=== PATIENT | male | born 1985 | race Caucasian/White ===

== ENCOUNTER 2019-02-26 21:54 | Emergency (ER) | payer OTHER, SELFPAY ==
[2019-02-26 21:57] VITALS: BP 155/80; PULSE 78; RESP 18; TEMP 36.9; O2SAT 97
--- NOTE | 2019-02-26 21:59 | ED.GENADUL_ITS ---
Discharge Plan Disposition Patient Disposition: HOME Condition: Stable Discharge Details Chief Complaint: Abd Prob Clinical Impression: Abdominal pain Primary Care Provider: Sylvia,Local ED Provider: Sen Vivar Home Meds and New Rx's Prescriptions: Continued bupropion HCl 450 mg Tablet Extended Release 24 Hr 450 mg PO DAILY RF: 0 Discharge Instructions Instructions: Abdominal Pain (ED) Additional Instructions: If you still have discomfort in a week see your primary care provider return to the emergency department for severe worsening of pain or new symptoms such as fevers or persistent vomit Medical Decision Making 33 yo male who denies chronic medical problems and no prior surgeries comes in with abdominal pain starting 2 hours ago. Denies any n/v, fevers, changes in bowel habits. on exam he is tender in the rlq without distention and no pain elsewhere in the abdomen. Given location of pain will obtain lab work and ct imaging to evavluate for entities such as appendicitis and pancreatitis pt's labs and imaging unremarkable and he no longer has any pain or tenderness. Given lack of pain or tenderness anymore do not feel additional lab or imaging indicated, could have been muscle spasm. Will d/c home and advised f/u with pcp and return precautions given Differential Diagnosis Differential Diagnosis: appendicitis, constipation, diverticulitis Imaging Data Radiologic Study: Attestation: I personally reviewed and interpreted this imaging study as follows: Imaging: CT Scan Radiologist's impression: no acute findings Lab Data Lab results reviewed: Yes I reviewed the patient's lab results. HPI General Mode of arrival: ambulatory . Date/Time Provider Initiated Documentation: 02/26/19 21:56 . Limitations to Documentation: no limitations . Information obtained by: patient . History of Present Illness 33 year old M presents to the emergency department with the chief complaint of abdominal pain, described as moderate, Quality is described as stabbing and aching, and is localized to the abdomen. Patient reports no radiation. Patient started experiencing this hour(s) (2) and it has been constant. No relieving factors improve symptom(s), No exacerbating factors reported . Patient did receive the following treatments prior to arrival, none Related Data Home Medications Medication Instructions Recorded Confirmed bupropion HCl 450 mg PO DAILY 02/26/19 02/26/19 Allergies Allergy/AdvReac Type Severity Reaction Status Date / Time No Known Allergies Allergy Unverified 02/26/19 22:01 General Stated Complaint: Abd Prob JLAEN: 3 Review of Systems All systems reviewed & are unremarkable except as noted in HPI and below Constitutional Constitutional: Denies chills, Denies fever(s) and Denies weakness Cardiovascular Cardiovascular: Denies chest pain and Denies dyspnea Respiratory Respiratory: Denies cough and Denies dyspnea Gastrointestinal Gastrointestinal: Denies nausea and Denies vomiting Musculoskeletal Musculoskeletal: Denies joint swelling Neurologic Neurologic: Denies weakness PFSH Social History Smoking/Tobacco Use Status: Current-Occasional Alcohol Intake: current Alcohol Intake frequency: 0-2 drinks per day Drug use: Never Do you feel safe at home: Yes Do you feel safe in your relationship?: Yes Exam Const General: no acute distress Orientation: alert HENMT Head: normal to inspection Ears: external ears normal General nose exam: external nose normal Mouth: moist mucous membranes Eyes General: appearance normal, both eyes and all related structures Neck Neck: normal visual inspection Resp Effort & Inspection: normal respiratory effort and able to speak in complete sentences Cardio Rate: regular rate Skin General skin exam: no rashes or lesions noted Neuro General: alert and oriented x3 Extrem General: normal to inspection Psych Mental Status: mental status grossly normal
[2019-02-26] MEDS: Ketorolac 15 MG/ML VIAL IVP (22:09)
[2019-02-26] MEDS: Normal Saline 1,000 ML 1000 ML IV (22:10)
[2019-02-26] MEDS: Normal Saline Flush 10 ML SYR IVP (22:10)
[2019-02-26 22:26] LABS: ALT 70 U/L (16-63); AST 26 U/L (15-37); Albumin 4.1 g/dL (3.4-5.0); Alkaline Phosphatase 100 U/L (46-116); Anion Gap 12.7 mmol/L (3-11); BUN 19 mg/dL (7-18); Bilirubin, Total 0.3 mg/dL (0.2-1.0); CO2 24.3 mmol/L (21.0-32.0); CREATININE 1.19 mg/dL (0.70-1.30); Calcium 8.6 mg/dL (8.5-10.1); Chloride 105 mmol/L (98-107); Glucose 120 mg/dL (70-100); Lipase 154 U/L (73-393); Potassium 3.5 mmol/L (3.5-5.1); Sodium 142 mmol/L (136-145); Total Protein 7.2 g/dL (6.4-8.2)
[2019-02-26] MEDS: Omnipaque 350 MG/ML 100 ML BTL IJ (22:29)
[2019-02-26 22:31] LABS: Bilirubin Negative (Negative); Blood Negative (Negative); Clarity Clear (Clear); Glucose Negative (Negative); Ketones Negative (Negative); Leukocyte Esterase Negative (Negative); Nitrite Negative (Negative); Urobilinogen 0.2 EU/dL (Up TO 0.2)
--- NOTE | 2019-02-26 22:31 | DI.CT_ITS ---
EXAM: CT ABDOMEN PELVIS W CLINICAL HISTORY: right lower abdominal pain TECHNIQUE: Imaging Protocol: Axial computed tomography images with coronal and sagittal reformatted images were created and reviewed CONTRAST MATERIAL: Intravenous: Omnipaque 350 Contrast volume:100 mL contrast route:IV - Oral: No COMPARISON: No exams were available for comparison FINDINGS: ABDOMEN: Lung Bases: Normal where visualized. Liver: Normal density. No measurable mass. The portal, superior mesenteric and splenic veins are harper nt. Gallbladder and biliary tract: No radiodense calculus or dilation. Pancreas: Normal density, no abnormal calcifications or inflammatory process. Spleen: Normal. Kidneys: Normal size, contour and axis. No radiodense stones or obstructive uropathy. No masses seen. Adrenal glands: No masses seen. Abdominal Aorta: Abdominal portion non-dilated. PELVIS: Bladder: Symmetric distention, no gross wall thickening. Bowel: No obstruction or bowel wall thickening. The appendix is normal in size without evidence of ad jacent mesenteric fat stranding or adjacent fluid collection. Peritoneal cavity: No ascites, collection or mesenteric inflammatory response. Bones: Within normal limits. Reproductive organs: Within normal limits. Lymph nodes: Unremarkable. Impression: Unremarkable CT scan of the abdomen and pelvis. DATA REPOSITORY: All CT scans at this facility are submitted to the National Radiology Data Registry (NRDR) Dose Index Registry (DIR) with the [employer] (ACR). RADIATION OPTIMIZATION: All CT scans at this facility use at least one of these dose optimization te chniques: automated exposure control; mA and/or kV adjustment per patient size (includes targeted exa ms where dose is matched to clinical indication); or iterative reconstruction.
[2019-02-26 22:35] LABS: Abs Immature Grans 0.01 k/cumm (0.0-0.09); Absolute Basophil Count 0.04 k/cumm (0.0-0.2); Absolute Eosinophil Count 0.28 k/cumm (0.0-0.7); Absolute Monocyte Count 0.74 k/cumm (0.11-0.7); Absolute Neutrophil Count 6.05 k/cumm (1.2-6.7); Basophils % 0.4; Eosinophils % 2.9; HCT 43.1 % (40.0-50.0); HGB 14.9 g/dL (13.5-17.5); Immature Grans % 0.1; Mean Corp. HGB Concentration 34.6 g/dL (32.0-36.0); Mean Corpuscular Hemoglobin 30.5 pg (27.0-33.0); Mean Corpuscular Volume 88.1 fL (80-95); Mean Platelet Volume 10.1 fL (8.0-11.0); Monocytes % 7.7; Neutrophils % 62.9; Platelet Count 261 x1000/uL (130-400); RBC 4.89 m/cumm (4.50-6.00); White Blood Cell Count 9.62 k/cumm (4.4-10.8)
--- NOTE | 2019-02-26 22:47 | DI.VRAD_ITS ---
PROCEDURE INFORMATION: Exam: CT Abdomen And Pelvis With Contrast Exam date and time: 02/26/2019 10:00 PM Clinical history: 33 years old, male; Abdominal pain; Localized; Right lower quadrant (rlq) TECHNIQUE: Imaging protocol: Computed tomography of the abdomen and pelvis with intravenous contrast. Radiation optimization: All CT scans at this facility use at least one of these dose optimization techniques: automated exposure control; mA and/or kV adjustment per patient size (includes targeted exams where dose is matched to clinical indication); or iterative reconstruction. Contrast material: [id number]; Contrast volume: 100 ml; Contrast route: IV RAC 18G; COMPARISON: No relevant prior studies available. FINDINGS: Liver: No suspicious lesions. Gallbladder and bile ducts: No acute or concerning findings. Pancreas: Unremarkable. No ductal dilation. Spleen: No suspicious lesions. Adrenals: No suspicious nodule. Kidneys and ureters: No hydro. No suspicious lesions. Stomach and bowel: No inflammed or dilated loops. Appendix: Normal appendix. Intraperitoneal space: No free air. No significant fluid collection. Vasculature: Unremarkable. No acute findings Lymph nodes: Unremarkable. Bladder: Unremarkable as visualized. Reproductive: Unremarkable as visualized. Bones/joints: Unremarkable. No acute fracture. Soft tissues: Unremarkable. IMPRESSION: No acute findings. Dictated and Authenticated by: Jim Maier MD. Ordering:RAYMOND Chatterjee MD
[2019-02-26 23:13] VITALS: BP 119/80; PULSE 83; RESP 18; O2SAT 97
== END 2019-02-26 23:05 | disposition home or self-care (01) ==
PROVIDERS: Emergency Provider Emergency Medicine
DX: R10.31 Right lower quadrant pain (principal)
CPT/HCPCS: 36415; 80053; 83690; 96361; 96374; 99285; 74177; 81003; 85025; 99284; J1885; J3490

== ENCOUNTER 2020-11-05 20:04 | Emergency (ER) | payer OTHER, SELFPAY ==
[2020-11-05 20:09] VITALS: BP 144/88; PULSE 84; RESP 18; TEMP 36.6; O2SAT 97
--- NOTE | 2020-11-05 20:15 | DI.RAD_ITS ---
Exam(s) XR LUMBAR SPINE COMPLETE EXAM: XR LUMBAR SPINE COMPLETE CLINICAL HISTORY: pain midline l4-l5. TECHNIQUE: 2D digital imaging was performed. COMPARISON: No exams were available for comparison FINDINGS: BONES: No fracture or destructive lesion. Vertebral bodies are unremarkable. No facet hypertrophy amando ntified. DISKS: Intervertebral disc spaces are maintained. ALIGNMENT: Lumbar spinal alignment is within normal limits. SOFT TISSUE: Normal. IMPRESSION: Unremarkable radiographs of the lumbar spine. DATA REPOSITORY: RADIATION DOSE DELIVERED:
[2020-11-05] MEDS: Orphenadrine 60 MG/2 ML VIAL IM (20:40)
--- NOTE | 2020-11-05 20:42 | ED.GENADUL_ITS ---
Discharge Plan Disposition Patient Disposition: HOME Condition: Stable Discharge Details Clinical Impression: Acute lumbar radiculopathy Primary Care Provider: Sylvia,Local ED Provider: Svetlana Lambert Home Meds and New Rx's Prescriptions: New prednisone 10 mg tablet 10 mg PO DAILY Qty: 20 RF: 0 orphenadrine citrate 100 mg tablet extended release 100 mg PO BID Qty: 10 RF: 0 lidocaine [Lidoderm] 5 % adhesive patch,medicated 1 patch topical DAILY Qty: 15 RF: 0 No Action sertraline 50 mg tablet 50 mg PO DAILY RF: 0 bupropion HCl 450 mg Tablet Extended Release 24 Hr 450 mg PO DAILY RF: 0 cyclobenzaprine 10 mg tablet RF: 0 prednisone 20 mg tablet 20 mg PO USEASDIRECTD RF: 0 Discharge Instructions Additional Instructions: Continue prednisone as prescribed, have sent prescription to your pharmacy Take Norflex medication as prescribed as needed for discomfort, do not drive for 12 hours after taking this medication as it may make you slightly drowsy Apply Lidoderm patch, 12 hours on, 12 hours off, call your doctor on Saturday and return should you have groin numbness, changes in bowel or bladder, weakness of your extremities, or with any new or worsening concerning Medical Decision Making Patient is ambulatory with steady gait, no evidence of cauda equina syndrome Ambulatory with steady gait Placed on Norflex, Lidoderm patch, [facility], we discussed outpatient MRI at the discretion of this provider X-ray lumbar spine does not show evidence of acute abnormality per my interpretation and radiology review Recommendation for reevaluation on Saturday We will take Tylenol 1 g every 6 hours, no more than 4 g daily recommending Neurovascularly intact Medical Records Medical records reviewed: Yes I reviewed the patient's medical records. HPI General Mode of arrival: ambulatory . Date/Time Provider Initiated Documentation: 11/05/20 20:14 . Limitations to Documentation: no limitations . Information obtained by: patient . HPI Narrative: This 35-year-old gentleman presents with report of low back pain. Patient states he has a history of similar pain in the past. He states he is never been quite this extended or painful. He denies any new injuries. He states in the middle of the spine and radiates up to his hips and into his groin. He denies any abdominal pain, groin numbness, changes in bowel or bladder. The pain is exacerbated with movement. He denies any radiation into his extremities or numbness to extremities. He denies any dysuria or frequency. He denies any flank pain. He has been taking prednisone since [facility] when [facility] and [facility]. He was also taking Flexeril which actually reportedly helped his discomfort but he is run out of this medication. Denies history of IV drug abuse or fever. Related Data Home Medications Medication Instructions Recorded Confirmed bupropion HCl 450 mg PO DAILY 02/26/19 11/05/20 sertraline 50 mg tablet 50 mg PO DAILY 05/11/20 11/05/20 cyclobenzaprine mg 11/05/20 lidocaine [Lidoderm] 1 patch TOPICAL DAILY #15 ea 11/05/20 orphenadrine citrate 100 mg PO BID #10 tab 11/05/20 prednisone 10 mg PO DAILY #20 tab 11/05/20 prednisone 20 mg PO USEASDIRECTD 11/05/20 11/05/20 Previous Rx's Medication Instructions Recorded lidocaine [Lidoderm] 1 patch TOPICAL DAILY #15 ea 11/05/20 orphenadrine citrate 100 mg PO BID #10 tab 11/05/20 prednisone 10 mg PO DAILY #20 tab 11/05/20 Allergies Allergy/AdvReac Type Severity Reaction Status Date / Time No Known Allergies Allergy Unverified 11/05/20 20:13 General Stated Complaint: Nk/Back Pain JALEN: 3 Review of Systems All systems reviewed & are unremarkable except as noted in HPI and below PFSH Medical History Alcohol abuse Concussion Epistaxis Hematuria Housing or economic circumstance Hx of traumatic brain injury Hyperlipidemia Left carpal tunnel syndrome Leukoplakia of oral mucosa/tongue Low back pain Major depressive disorder Nasal congestion Obstructive sleep apnea Pain, joint, knee, left PTSD (post-traumatic stress disorder) Right shoulder pain Tobacco user Social History Smoking/Tobacco Use Status: Former Tobacco Use Smoking risk assessment performed?: Yes Alcohol Intake: former Drug use: Occasionally Substance use type: marijuana Details: 11/02/20 18 months with no alcohol Household members: spouse Housing: other Details: mobile home Number of Children: 4 Pets and animals: Yes Pets and animals: cat(s) and dog(s) What is your relationship status?: Panel score (0-1 are the most socially isolated patients): 1 What type of physical activity do you participate in: none Seatbelt use: always Do you feel safe at home: Yes Do you feel safe in your relationship?: Yes Exam Const General: cooperative and no acute distress Eyes Sclera: sclerae normal Resp Effort & Inspection: normal respiratory effort Cardio Rate: regular rate Other: Distal pulses intact GI Other: No abdominal bruit or pulsatile mass, no CVA tenderness Back/Spine/Pelvis Back/spine/pelvis image: 1. Tenderness with palpation, no visible sign of trauma Skin General skin exam: no rashes or lesions noted Neuro General: patient alert and patient oriented x3 Cranial Nerves: CN's II-XI intact bilaterally Other: DTRs intact bilateral lower extremities, strength and sensation intact in bilateral lower extremities, distal pulses intact, negative straight leg raise bilaterally Course Vital Signs Vital signs: Vital Signs Temperature 36.6 C 11/05/20 20:09 Pulse 84 11/05/20 20:09 Respiratory Rate 18 11/05/20 20:09 Blood Pressure 144/88 H 11/05/20 20:09 Pulse Oximetry 97 11/05/20 20:09 Temperature 36.6 C 11/05/20 20:09 Temperature Source Temporal Artery Scan 11/05/20 20:09 Pulse 84 11/05/20 20:09 Respiratory Rate 18 11/05/20 20:09 Respiratory Effort 11/05/20 20:16 Blood Pressure 144/88 H 11/05/20 20:09 Blood Pressure Position Sitting 11/05/20 20:09 Pulse Oximetry 97 11/05/20 20:09 Oxygen Delivery Method Room Air 11/05/20 20:09 Oxygen Flow Rate 0 11/05/20 20:09 Pain Level 9 11/05/20 20:09
[2020-11-05] MEDS: Lidocaine 5% Patch 1 PATCH TP (20:43)
--- NOTE | 2020-11-05 21:37 | DI.VRAD_ITS ---
PROCEDURE INFORMATION: Exam: XR Lumbosacral Spine Exam date and time: 11/05/2020 8:30 PM Age: 35 years old Clinical indication: Low back pain; Patient HX: Pain midline l4-l5 TECHNIQUE: Imaging protocol: XR of the lumbosacral spine. Views: 4 or 5 views. COMPARISON: CT ABDOMEN PELVIS W 02/26/2019 10:29 PM FINDINGS: Bones/joints: Normal. No acute fracture. Normal alignment. Soft tissues: Unremarkable. IMPRESSION: No acute findings. Dictated and Authenticated by: Dalton Angeles MD. Ordering:MAVIS Mota MD
== END 2020-11-05 21:30 | disposition home or self-care (01) ==
PROVIDERS: Emergency Provider Physician Assistant
DX: M54.16 Radiculopathy, lumbar region (principal)
CPT/HCPCS: 96372; 99284; J2360; 72110

== ENCOUNTER 2021-05-08 20:33 | Emergency (ER) | payer OTHER, SELFPAY ==
[2021-05-08 20:41] VITALS: BP 115/79; PULSE 120; RESP 18; TEMP 36.6; O2SAT 97
--- NOTE | 2021-05-08 21:33 | W.ED.GENAD ---
Discharge Plan Disposition Patient Disposition: HOME Condition: Stable Discharge Details Clinical Impression: Lumbago without sciatica Primary Care Provider: Unknown,Unknown ED Provider: Francesca Jackson Home Meds and New Rx's Prescriptions: New prednisone 20 mg tablet 40 mg PO DAILY 5 Days Qty: 10 RF: 0 No Action sertraline 50 mg tablet 50 mg PO DAILY RF: 0 bupropion HCl 450 mg Tablet Extended Release 24 Hr 450 mg PO DAILY RF: 0 cyclobenzaprine 10 mg tablet 10 mg PO DAILY RF: 0 lidocaine [Lidoderm] 5 % adhesive patch,medicated 1 patch topical DAILY Qty: 15 RF: 0 Discharge Instructions Instructions: Low Back Strain (ED) Additional Instructions: X-rays show no acute abnormality. Please take the Valium before bedtime tomorrow as needed for muscle spasm. A prescription for prednisone was sent to the pharmacy we have on file for you. Please take this as directed. Please take Tylenol or Ibuprofen with food every 4-6 hours as needed for pain and swelling. You may try lidocaine patches which get [id number] or IcyHot or similar topical rub. Follow up with primary care provider in 3-5 days. Return to ED sooner if any worsening or concerns. Increase oral fluids. Medical Decision Making 35-year-old male presents to the ER with chief complaint of lower lumbar back pain which he reports began yesterday afternoon after getting up from a sitting position on a couch. He said that it spasmed up and has been getting worse since then. He was seen here in our department approximately 6 months ago for similar and had normal x-rays. He reports that he had an [facility] which showed a bulging disc. He was prescribed prednisone in the past which seemed to help his symptoms. He denies any loss of bowel or bladder control here today. He reports pain radiates down to his bilateral buttocks. No radiation to his lower extremities. He denies any saddle anesthesia. He denies any problems urinating or dysuria. He states that his left normal bowel movement was yesterday morning. He denies any recent heavy lifting or falls. He has a past medical history of traumatic brain injury, major depressive disorder, sleep apnea, PTSD and he is a daily smoker. Fomer alcohol use. L-spine XR: FINDINGS: Bones/joints: Alignment is normal. Vertebral body heights are maintained. There is mild multilevel disc height loss, endplate spurring and facet hypertrophy. No acute fracture. Soft tissues: Unremarkable. IMPRESSION: 1. No acute bone abnormality. 2. Mild degenerative disc disease. Patient was given Valium, oxycodone, lidocaine patch and prednisone. Patient given prescription for prednisone instructed to take lidocaine patch and obtain them [id number]. Patient was given 1 Valium to go. Patient has Flexeril at home. Instructed on home care, verbalized understanding. Patient somewhat improved prior to discharge. This text was generated using Interactive Projectation system, please disregard any oddities of phrase or misspellings. HPI General Mode of arrival: ambulatory. Date/Time Provider Initiated Documentation: 05/08/21 20:52. Limitations to Documentation: no limitations. Information obtained by: patient, RN notes reviewed and old records reviewed. HPI Narrative: 35-year-old male presents to the ER with chief complaint of lower lumbar back pain which he reports began yesterday afternoon after getting up from a sitting position on a couch. He said that it spasmed up and has been getting worse since then. He was seen here in our department approximately 6 months ago for similar and had normal x-rays. He reports that he had an [facility] which showed a bulging disc. He was prescribed prednisone in the past which seemed to help his symptoms. He denies any loss of bowel or bladder control here today. He reports pain radiates down to his bilateral buttocks. No radiation to his lower extremities. He denies any saddle anesthesia. He denies any problems urinating or dysuria. He states that his left normal bowel movement was yesterday morning. He denies any recent heavy lifting or falls. He has a past medical history of traumatic brain injury, major depressive disorder, sleep apnea, PTSD and he is a daily smoker. Fomer alcohol use. Related Data Home Medications Medication Instructions Recorded Confirmed bupropion HCl 450 mg PO DAILY 02/26/19 05/08/21 sertraline 50 mg tablet 50 mg PO DAILY 05/11/20 05/08/21 cyclobenzaprine 10 mg PO DAILY 11/05/20 05/08/21 lidocaine [Lidoderm] 1 patch TOPICAL DAILY #15 ea 11/05/20 05/08/21 prednisone 40 mg PO DAILY 5 Days #10 tab 05/08/21 Previous Rx's Medication Instructions Recorded lidocaine [Lidoderm] 1 patch TOPICAL DAILY #15 ea 11/05/20 prednisone 40 mg PO DAILY 5 Days #10 tab 05/08/21 Allergies Allergy/AdvReac Type Severity Reaction Status Date / Time No Known Allergies Allergy Unverified 05/08/21 22:15 General Stated Complaint: Nk/Back Pain JALEN: 3 Review of Systems All systems reviewed & are unremarkable except as noted in HPI and below ENT Ears, Nose, Mouth, and Throat: Denies neck pain Musculoskeletal Musculoskeletal: Reports as per HPI, Reports back pain, Denies neck pain, Denies numbness, Denies radiating pain into limb and Denies tingling Neurologic Neurologic: Denies numbness and Denies tingling [facility] All Active Problems (Updated 05/08/21 @ 23:00 by Francesca Jackson) Acute lumbar radiculopathy (Acute) Lumbago without sciatica (Acute) Left carpal tunnel syndrome (Acute) Medical History Alcohol abuse Concussion Epistaxis Hematuria Housing or economic circumstance Hx of traumatic brain injury Hyperlipidemia Leukoplakia of oral mucosa/tongue Low back pain Major depressive disorder Nasal congestion Obstructive sleep apnea Pain, joint, knee, left PTSD (post-traumatic stress disorder) Right shoulder pain Tobacco user Social History Smoking/Tobacco Use Status: Current every day Tobacco Type: cigarettes Smoking risk assessment performed?: Yes Alcohol Intake: former Drug use: Occasionally Substance use type: marijuana Details: 2 years sober from alcohol. Household members: spouse Housing: other Details: mobile home Number of Children: 4 Pets and animals: Yes Pets and animals: cat(s) and dog(s) What is your relationship status?: Panel score (0-1 are the most socially isolated patients): 1 What type of physical activity do you participate in: none Seatbelt use: always Do you feel safe at home: Yes Do you feel safe in your relationship?: Yes Exam Narrative Exam Narrative: Constitutional: Alert and oriented x3. Appears stated age. Normal body habitus. Head: Normocephalic, no trauma. Eyes: Pupils PERRL, Red reflex noted, EOM's intact. Eyelids symmetrical without lesions, discharge, or swelling. ENT: Bilateral TM's WNL, External ear normal to inspection, no mastoid TTP, swelling, or erythema, Nasal turbinates WNL, no nasal discharge. Normal dentition, Posterior pharynx WNL, no exudate. Chest: RRR, Normal S1, S2, distal pulses intact. Resp: Lungs clear to auscultation bilaterally, no wheezes, rales, or rhonchi. Abdomen: Soft, non-distended, Normoactive bowel sounds all 4 quads. Musculoskeletal: Normal gait, 5/5 strength to all four extremities. Tenderness with palpation to midline L spine, paraspinous muscle spasm noted. Patient has distal sensation intact bilaterally to lower extremities. Skin: No suspicious rashes or lesions. Capillary refill less than 2 sec. Neurologic: Cranial nerves II-XII intact. Alert and oriented x 3. Motor: No deficits noted. Sensory: Intact bilaterally all 4 extremities. Reflexes: DTR's intact bilaterally.. Hematologic/Lymphatic: No ecchymosis, no lymphadenopathy. Course Vital Signs Vital signs: Vital Signs Temperature 36.6 C 05/08/21 20:41 Pulse 120 H 05/08/21 20:41 Respiratory Rate 18 05/08/21 20:41 Blood Pressure 115/79 05/08/21 20:41 Pulse Oximetry 97 05/08/21 20:41 Temperature 36.6 C 05/08/21 20:41 Temperature Source Temporal Artery Scan 05/08/21 20:41 Pulse 120 H 05/08/21 20:41 Respiratory Rate 18 05/08/21 20:41 Respiratory Effort Non-Labored 05/08/21 20:45 Blood Pressure 115/79 05/08/21 20:41 Blood Pressure Position Sitting 05/08/21 20:41 Pulse Oximetry 97 05/08/21 20:41 Oxygen Delivery Method Room Air 05/08/21 20:41 Oxygen Flow Rate 0 05/08/21 20:41 Pain Level 9 05/08/21 20:45
[2021-05-08] MEDS: diazePAM 5 MG TAB PO ×2 (21:43→23:08)
[2021-05-08] MEDS: oxyCODONE 5 MG TAB PO (21:44)
[2021-05-08] MEDS: predniSONE 20 MG TAB 60 MG PO (21:44)
[2021-05-08] MEDS: Lidocaine 5% Patch 1 PATCH TP (21:51)
--- NOTE | 2021-05-08 22:15 | DI.RAD_ITS ---
Exam(s) XR LUMBAR SPINE COMPLETE EXAM: XR LUMBAR SPINE COMPLETE CLINICAL HISTORY: Lower back pain. TECHNIQUE: 2D digital imaging was performed of the lumbar spine. Five images were obtained. AP, la teral, right oblique, left oblique and L5-S1 spot views were obtained. COMPARISON: CR,XR XR LUMBAR SPINE COMPLETE from 11/05/2020 FINDINGS: BONES: No fracture or destructive lesion. Vertebral bodies are unremarkable. There is mild endplate s purring. DISKS: Intervertebral disc spaces are maintained. ALIGNMENT: Lumbar spinal alignment is within normal limits. No spondylolysis or spondylolisthesis. SOFT TISSUE: Normal. IMPRESSION: 1. No acute fracture or subluxation. 2. Mild degenerative changes in the lumbar spine. DATA REPOSITORY: RADIATION DOSE DELIVERED:
--- NOTE | 2021-05-08 22:53 | DI.VRAD_ITS ---
PROCEDURE INFORMATION: Exam: XR Lumbosacral Spine Exam date and time: 05/08/2021 9:33 PM Age: 35 years old Clinical indication: Low back pain TECHNIQUE: Imaging protocol: XR of the lumbosacral spine. Views: 4 or 5 views. Total images: 5 COMPARISON: CR XR LUMBAR SPINE COMPLETE 11/05/2020 8:51 PM FINDINGS: Bones/joints: Alignment is normal. Vertebral body heights are maintained. There is mild multilevel disc height loss, endplate spurring and facet hypertrophy. No acute fracture. Soft tissues: Unremarkable. IMPRESSION: 1. No acute bone abnormality. 2. Mild degenerative disc disease. Dictated and Authenticated by: Manuela Isabel MD. Ordering:ABA Ma MD
[2021-05-08 23:08] VITALS: BP 122/78; PULSE 72; RESP 18; O2SAT 98
== END 2021-05-08 23:09 | disposition home or self-care (01) ==
PROVIDERS: Emergency Provider Registered Nurse Emergency
DX: M54.50 Low back pain, unspecified (principal)
CPT/HCPCS: 99283; 72110; J7512

== ENCOUNTER 2021-11-01 13:41 | Emergency (ER) | payer OTHER, SELFPAY ==
[2021-11-01 13:45] VITALS: BP 125/88; PULSE 85; RESP 16; TEMP 36.7; O2SAT 97
--- NOTE | 2021-11-01 13:45 | DI.RAD_ITS ---
Exam(s) XR THUMB RT EXAM: XR THUMB RT CLINICAL HISTORY: s/p injury ?fx. TECHNIQUE: 2D digital imaging was performed. Three views. COMPARISON: No exams were available for comparison FINDINGS: BONES: No acute fracture is present. No bony destructive lesion is seen. JOINTS: No dislocation present. SOFT TISSUE: Normal. IMPRESSION: No evidence of acute fracture, dislocation, or subluxation. DATA REPOSITORY: RADIATION DOSE DELIVERED:
--- NOTE | 2021-11-01 14:16 | PDOC.ERCMPRO ---
- If Service Date Differs Date of service: 11/01/21 Time of Service: 14:17 Care Management Progress Note Pt reports he is 2 years sober from alcohol and is trying to quit smoking. Pt has successfully cut back from one pack to a half pack per day. Pt was given smoking cessation resources including hypnotherapy referral and encouraged in his efforts.
--- NOTE | 2021-11-01 16:04 | ED.GENADUL_ITS ---
Discharge Plan Disposition Patient Disposition: HOME Condition: Stable Discharge Details Clinical Impression: Contusion of right thumb Primary Care Provider: Unknown,Unknown ED Provider: Svetlana Lambert Home Meds and New Rx's Prescriptions: Continued sertraline 50 mg tablet 100 mg PO DAILY bupropion HCl 450 mg Tablet Extended Release 24 Hr 450 mg PO DAILY cyclobenzaprine 10 mg tablet 10 mg PO DAILY Label Comments: TAKE 1 TABLET BY MOUTH AT BEDTIME NEEDED FOR PAIN lidocaine [Lidoderm] 5 % adhesive patch,medicated 1 patch topical DAILY Qty: 15 0RF Rx Instructions: leave on most painful area for up to 12 hrs Discharge Instructions Instructions: Contusion in Adults (ED) Additional Instructions: Take ibuprofen and Tylenol as needed for pain You do not have an obvious fracture on your x-ray Should you have persistent pain, recommend repeat x-ray in 1 week Discharge Data Discharge Date/Time-TO BE ENTERED AT DEPARTURE: 11/01/21 15:04 Medical Decision Making X-ray did not show evidence of fracture, placed in a splint per radiology interpretation my review Repeat x-ray in 1 week with persistent pain recommended Return precautions discussed and patient expressed understanding HPI General Date/Time Provider Initiated Documentation: 11/01/21 14:37 . HPI Narrative: This 36-year-old male presents with report of right thumb injury. Slammed over thumb in a door. This morning pain was worse. Denies any additional injuries or complaints. Related Data Home Medications Medication Instructions Recorded Confirmed bupropion HCl 450 mg 24 hr tablet, 450 mg PO DAILY 02/26/19 11/01/21 extended release sertraline 50 mg tablet 100 mg PO DAILY 05/11/20 11/01/21 cyclobenzaprine 10 mg tablet 10 mg PO DAILY 11/05/20 11/01/21 lidocaine 5 % topical patch 1 patch topical DAILY #15 ea 11/05/20 11/01/21 (Lidoderm) Previous Rx's Medication Instructions Recorded lidocaine 5 % topical patch 1 patch topical DAILY #15 ea 11/05/20 (Lidoderm) Allergies Allergy/AdvReac Type Severity Reaction Status Date / Time No Known Allergies Allergy Unverified 11/01/21 13:47 General Stated Complaint: Orthopedic JALEN: 4 Review of Systems Narrative: Review of systems obtained x3 and negative aside from indication in HPI PFSH All Active Problems (Updated 11/01/21 @ 14:39 by JANIS Geronimo) Acute lumbar radiculopathy (Acute) Contusion of right thumb (Acute) Left carpal tunnel syndrome (Acute) Medical History Alcohol abuse Concussion Epistaxis Hematuria Housing or economic circumstance Hx of traumatic brain injury Hyperlipidemia Leukoplakia of oral mucosa/tongue Low back pain Major depressive disorder Nasal congestion Obstructive sleep apnea Pain, joint, knee, left PTSD (post-traumatic stress disorder) Right shoulder pain Tobacco user Social History Smoking/Tobacco Use Status: Current every day Tobacco Type: cigarettes Smoking risk assessment performed?: Yes Alcohol Intake: former Drug use: Occasionally Substance use type: marijuana Details: 2 years sober from alcohol. Household members: spouse Housing: other Details: mobile home Number of Children: 4 Pets and animals: Yes Pets and animals: cat(s) and dog(s) What is your relationship status?: Panel score (0-1 are the most socially isolated patients): 1 What type of physical activity do you participate in: none Seatbelt use: always Do you feel safe at home: Yes Do you feel safe in your relationship?: Yes Exam Const General: cooperative, comfortable and no acute distress Extrem Hand/finger images: 1. Tenderness, Neurovascularly intact Course Vital Signs Vital signs: Vital Signs Temperature 36.7 C 11/01/21 13:45 Pulse 85 11/01/21 13:45 Respiratory Rate 16 11/01/21 13:45 Blood Pressure 125/88 11/01/21 13:45 Pulse Oximetry 97 11/01/21 13:45 Temperature 36.7 C 11/01/21 13:45 Temperature Source Temporal Artery Scan 11/01/21 13:45 Pulse 85 11/01/21 13:45 Respiratory Rate 16 11/01/21 13:45 Respiratory Effort 11/01/21 13:47 Blood Pressure 125/88 11/01/21 13:45 Blood Pressure Position Sitting 11/01/21 13:45 Pulse Oximetry 97 11/01/21 13:45 Oxygen Delivery Method Room Air 11/01/21 13:45 Oxygen Flow Rate 0 11/01/21 13:45 Pain Level 5 11/01/21 15:04
== END 2021-11-01 15:04 | disposition home or self-care (01) ==
PROVIDERS: Emergency Provider Physician Assistant
DX: S60.011A Contusion of right thumb without damage to nail, initial encounter (principal); F17.210 Nicotine dependence, cigarettes, uncomplicated; W23.0XXA Caught, crushed, jammed, or pinched between moving objects, initial encounter; Z71.6 Tobacco abuse counseling
CPT/HCPCS: 99283; 73140; 99282

== ENCOUNTER 2021-12-06 12:15 | Emergency (ER) | payer OTHER, SELFPAY ==
[2021-12-06 12:49] VITALS: BP 140/75; PULSE 70; RESP 14; TEMP 36.8; O2SAT 98
[2021-12-06 14:13] VITALS: BP 112/75; PULSE 75; O2SAT 98
--- NOTE | 2021-12-06 14:30 | DI.RAD_ITS ---
Exam(s) XR THORACIC SPINE COMPLETE EXAM: XR THORACIC SPINE COMPLETE CLINICAL HISTORY: spinous process T10-T11 pain after twisting. TECHNIQUE: 2D digital imaging was performed. COMPARISON: No exams were available for comparison FINDINGS: 3 views There is slight indentation of superior endplate of T10, seen on the lateral view, possibly significa nt given that this is apparently area of maximum tenderness. No other superior endplate compressions . No obvious superior endplate Schmorl's node invagination is although there are few inferior endpla te Schmorl's node invagination is below this level. IMPRESSION: Subtle mild indentation of the superior endplate of T10, possibly significant. DATA REPOSITORY: RADIATION DOSE DELIVERED:
--- NOTE | 2021-12-06 15:07 | ED.GENADUL_ITS ---
Discharge Plan Disposition Patient Disposition: HOME Condition: Good Discharge Details Clinical Impression: Back pain Primary Care Provider: Unknown,Unknown ED Provider: Myron Lane Home Meds and New Rx's Prescriptions: New lidocaine [Lidoderm] 5 % adhesive patch,medicated 1 patch Topical Q24H Qty: 15 0RF Discontinued lidocaine [Lidoderm] 5 % adhesive patch,medicated 1 patch topical DAILY Qty: 15 0RF Rx Instructions: leave on most painful area for up to 12 hrs No Action sertraline 50 mg tablet 100 mg PO DAILY bupropion HCl 450 mg Tablet Extended Release 24 Hr 450 mg PO DAILY cyclobenzaprine 10 mg tablet 10 mg PO DAILY Label Comments: TAKE 1 TABLET BY MOUTH AT BEDTIME NEEDED FOR PAIN Discharge Instructions Instructions: Back Pain (ED) Additional Instructions: At this time your x-ray shows no evidence of significant fracture, disc change, or vertebral body change. However there is a very small compression at the end of your vertebral body which may have been a tiny fracture. This will take a few weeks to heal. It is likely that there may also have been a ligamentous injury that occurred when you were initially twisting. Please use the Tylenol, Motrin, and Lidoderm patch as prescribed. If the symptoms do not improve after a week of therapy and you may need further imaging, potentially an MRI. If you notice any new symptoms like numbness tingling or weakness in your lower extremities, change in sensation when wiping, bowel or bladder loss of control, please return immediately for reassessment. If you notice any worsening of your symptoms, or any new symptoms such as vomiting, diarrhea, fever, chills, shortness of breath, chest pain, numbness, weakness, or fainting , please return immediately to the emergency department for reevaluation. Please follow up with your primary care provider as soon as possible for reassessment and reevaluation. As always, it was a pleasure participating in your medical care today. Discharge Data Discharge Date/Time-TO BE ENTERED AT DEPARTURE: 12/06/21 15:46 Medical Decision Making 36-year-old male with no significant past medical history presents today for back pain. The patient states that 3 days ago he was twisting out of his truck, after which she developed what he felt was a pinching sensation in his back. Pain has persisted for the last 2 days. Sometimes it seems to wrap around anteriorly with certain movements. Worse with activity, improved by Tylenol and Motrin. He denies any distal numbness tingling or weakness. Patient denies any saddle anesthesia, numbness or tingling in the groin, change in sensation when wiping. Patient denies any change in sensation during sexual intercourse, difficulty achieving or maintaining an erection or ejaculation, bowel or bladder incontinence, leakage, or retention. Patient denies any weakness in the lower extremities, atypical falls or imbalance. He denies any chest pain or shortness of breath. No other complaints at this time. No other modifying factors. Physical exam demonstrates point tenderness over T10. No other significant abnormalities, no concerning red flags suggestive of cauda equina syndrome or anything else. X-ray was ordered and does demonstrate a subtle mild indentation of the superior endplate of T10, which does appear to correlate clinically with the patient's symptomatology. Suspect that this may have occurred during that twisting motion. Otherwise no concerning abnormalities noted on exam. Will recommend continued NSAIDs, Lidoderm patch. Of note the patient states he feels much better after having the Lidoderm patch administered. Patient stable for discharge. Recommend close follow-up with PCP for further discussion if pain persist. I have extensively reviewed the treatment plan and discharge instructions with the patient. I have addressed all patient concerns at this time. The patient was made aware of what symptoms to monitor for that would warrant a return to the emergency department. Discussed the plan with the patient, they demonstrate verbal understanding and agreement with our assessment and plan at this time. The documentation in this chart was dictated using Gathered[employer] dictation software. Please excuse any dictation errors. FINDINGS: 3 views There is slight indentation of superior endplate of T10, seen on the lateral view, possibly significant given that this is apparently area of maximum tenderness. No other superior endplate compressions. No obvious superior endplate Schmorl's node invagination is although there are few inferior endplate Schmorl's node invagination is below this level. IMPRESSION: Subtle mild indentation of the superior endplate of T10, possibly significant. HPI General Date/Time Provider Initiated Documentation: 12/06/21 14:23 . HPI Narrative: 36-year-old male with no significant past medical history presents today for back pain. The patient states that 3 days ago he was twisting out of his truck, after which she developed what he felt was a pinching sensation in his back. Pain has persisted for the last 2 days. Sometimes it seems to wrap around anteriorly with certain movements. Worse with activity, improved by Tylenol and Motrin. He denies any distal numbness tingling or weakness. Patient denies any saddle anesthesia, numbness or tingling in the groin, change in sensation when wiping. Patient denies any change in sensation during sexual intercourse, difficulty achieving or maintaining an erection or ejaculation, bowel or bladder incontinence, leakage, or retention. Patient denies any weakness in the lower extremities, atypical falls or imbalance. He denies any chest pain or shortness of breath. No other complaints at this time. No other modifying factors. Related Data Home Medications Medication Instructions Recorded Confirmed bupropion HCl 450 mg 24 hr tablet, 450 mg PO DAILY 02/26/19 11/01/21 extended release sertraline 50 mg tablet 100 mg PO DAILY 05/11/20 11/01/21 cyclobenzaprine 10 mg tablet 10 mg PO DAILY 11/05/20 11/01/21 lidocaine 5 % topical patch 1 patch topical Q24H #15 ea 12/06/21 (Lidoderm) Previous Rx's Medication Instructions Recorded lidocaine 5 % topical patch 1 patch topical Q24H #15 ea 12/06/21 (Lidoderm) Allergies Allergy/AdvReac Type Severity Reaction Status Date / Time No Known Allergies Allergy Unverified 11/01/21 13:47 General Stated Complaint: Nk/Back Pain JALEN: 4 Review of Systems All systems reviewed & are unremarkable except as noted in HPI and below PFSH All Active Problems Acute lumbar radiculopathy (Acute) Back pain (Acute) Left carpal tunnel syndrome (Acute) Medical History Alcohol abuse Concussion Epistaxis Hematuria Housing or economic circumstance Hx of traumatic brain injury Hyperlipidemia Leukoplakia of oral mucosa/tongue Low back pain Major depressive disorder Nasal congestion Obstructive sleep apnea Pain, joint, knee, left PTSD (post-traumatic stress disorder) Right shoulder pain Tobacco user Social History Smoking/Tobacco Use Status: Current every day Tobacco Type: cigarettes Smoking risk assessment performed?: Yes Alcohol Intake: former Drug use: Occasionally Substance use type: marijuana Details: 2 years sober from alcohol. Household members: spouse Housing: other Details: mobile home Number of Children: 4 Pets and animals: Yes Pets and animals: cat(s) and dog(s) What is your relationship status?: Panel score (0-1 are the most socially isolated patients): 1 What type of physical activity do you participate in: none Seatbelt use: always Do you feel safe at home: Yes Do you feel safe in your relationship?: Yes Exam Narrative Exam Narrative: 1.Const: Well-nourished, Well-developed, appearing stated age 2.Eyes: PERRL, no conjunctival injection, and symmetrical lids. 3.ENT: Atraumatic external nose and ears. Moist MM. Neck: Symmetric, trachea midline, No thyromegaly. 4.CVS: +S1/S2, No murmurs or gallops. Peripheral pulses 2+ and equal in all extremities. Brisk capillary refill in all extremities. 5.RESP: Unlabored respiratory effort. Clear to auscultation bilaterally. No wheezes rales or rhonchi 6.GI: Soft, Nontender/Nondistended, No hepatosplenomegaly. No guarding or rebound. 7.MSK: Normocephalic/Atraumatic, Extremities w/o deformity or ttp No cyanosis or clubbing, Normal movement of all extremities No midline tenderness to palpation over the CLS spine. Patient does demonstrate point tenderness over T10. Normal ROM in flexion, extension, side bend, and rotation. Patient has +5 out of 5 strength in the lower extremities in dorsiflexion and plantarflexion, knee flexion and extension, hip flexion and extension. Normal strength for dorsiflexion and plantar flexion of the great toe bilaterally. There is +2 over 2 dorsalis pedis pulses bilaterally. There is normal sensation to the skin with light touch at the foot, knee, and hip. Normal saddle sensation. Good sensation over the deep sural nerve area bilaterally. Rectal exam deferred. Reflexes are +2 over 4 in the patellar reflex bilaterally. +5 out of 5 strength in the medial, ulnar, radial nerve distribution bilaterally in the hands as well as intact light touch sensation to these dermatomes on the hands 8.Skin: Warm, Dry. No rashes or lesions. 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 Sensation grossly intact, no focal neurologic deficits. 10.Psych: (AAO) x3. Appropriate mood and affect Course Vital Signs Vital signs: Vital Signs Temperature 36.8 C 12/06/21 12:49 Pulse 70 12/06/21 12:49 Respiratory Rate 14 12/06/21 12:49 Blood Pressure 140/75 12/06/21 12:49 Pulse Oximetry 98 12/06/21 12:49 Temperature 36.8 C 12/06/21 12:49 Temperature Source Temporal Artery Scan 12/06/21 12:49 Pulse 75 12/06/21 14:13 Respiratory Rate 14 12/06/21 12:49 Blood Pressure 112/75 12/06/21 14:13 Blood Pressure Position Sitting 12/06/21 12:49 Pulse Oximetry 98 12/06/21 14:13 Oxygen Delivery Method Room Air 12/06/21 14:13 Oxygen Flow Rate 0 12/06/21 14:13 Pain Level 6 12/06/21 12:49
[2021-12-06] MEDS: Lidocaine 5% Patch 1 PATCH TP (15:10)
== END 2021-12-06 15:46 | disposition home or self-care (01) ==
LOC: ER 15:21
PROVIDERS: Emergency Provider Student in an Organized Health Care Education/Training Program
DX: M54.9 Dorsalgia, unspecified (principal); F17.210 Nicotine dependence, cigarettes, uncomplicated
CPT/HCPCS: 99283; 72072; 99284

== ENCOUNTER 2022-04-26 12:34 | Outpatient (CLI) | payer MEDICAID, SELFPAY ==
--- NOTE | 2022-04-26 12:45 | RT.EKG_ITS ---
APPROVED REPORT Exam: Resting ECG Reason for Exam: ENOUNTER FOR SCREENING, UNSPECIFIED Patient Location: O HR:90 bpm ECG Measurements Heart Rate 90 AXIS CO 167 P 58 QRSd 102 QRS 71 QT 337 T 30 QTc 413 Conclusion Sinus rhythm...normal P axis, V-rate 50- 99 ST elev, probable normal early repol pattern...ST elevation, age<55 Normal Electrocardiogram
== END 2022-04-26 12:35 | disposition home or self-care (01) ==
LOC: CARDOPNVT 12:34
PROVIDERS: Visit Provider Nurse Practitioner Family
DX: Z13.6 Encounter for screening for cardiovascular disorders (principal)
CPT/HCPCS: 93005; 93010

== ENCOUNTER 2022-10-11 09:53 | Emergency (ER) | payer OTHER, SELFPAY ==
[2022-10-11 10:06] VITALS: BP 112/79; PULSE 83; RESP 18; TEMP 36.7; O2SAT 97
--- NOTE | 2022-10-11 11:02 | DI.RAD_ITS ---
Exam(s) XR FINGER LT MIDDLE EXAM: XR FINGER LT MIDDLE CLINICAL HISTORY: 3rd digit pain, mid phalanx. TECHNIQUE: 2D digital imaging was performed. Three views. COMPARISON: None. FINDINGS: BONES: No acute fracture is present. No bony destructive lesion is seen. JOINTS: No dislocation present. SOFT TISSUE: Normal. IMPRESSION: No evidence of acute fracture, dislocation, or subluxation. DATA REPOSITORY: RADIATION DOSE DELIVERED:
--- NOTE | 2022-10-11 12:00 | ED.GENADUL_ITS ---
Discharge Plan Disposition Patient Disposition: Home Condition: Stable Discharge Details Clinical Impression: Contusion of finger Primary Care Provider: Jude Russell ED Provider: Svetlana Lamebrt Home Meds and New Rx's Prescriptions: Continued sertraline 50 mg tablet 50 mg PO DAILY bupropion HCl 450 mg Tablet Extended Release 24 Hr 450 mg PO DAILY lidocaine [Lidoderm] 5 % adhesive patch,medicated 1 patch Topical Q24H Qty: 15 0RF cyclobenzaprine 10 mg tablet 10 mg PO DAILY Patient Comments: TAKE 1 TABLET BY MOUTH AT BEDTIME NEEDED FOR PAIN Discharge Instructions Instructions: Contusion in Adults (ED) Additional Instructions: Take ibuprofen and Tylenol as needed for pain Use as tolerated Should your symptoms persist greater than a week you should have this exam and Referrals: Jude Russell MD [Primary Care Provider] - Discharge Data Discharge Date/Time-TO BE ENTERED AT DEPARTURE: 10/11/22 13:30 Medical Decision Making X-ray of left middle finger does not show evidence of acute abnormality per radiology interpretation my review Middle finger shows mild swelling, no ecchymosis, neurovascularly intact Return precautions reviewed and patient expressed understanding Repeat films recommended with persistent pain HPI General Date/Time Provider Initiated Documentation: 10/11/22 10:46 . HPI Narrative: 37-year-old male presents with injury to left middle finger after he cut his finger in the door. He denies any additional injuries. Otherwise reportedly healthy Related Data Home Medications Medication Instructions Recorded Confirmed bupropion HCl 450 mg 24 hr tablet, 450 mg PO DAILY 02/26/19 10/11/22 extended release sertraline 50 mg tablet 50 mg PO DAILY 05/11/20 10/11/22 cyclobenzaprine 10 mg tablet 10 mg PO DAILY 11/05/20 10/11/22 lidocaine 5 % topical patch 1 patch topical Q24H #15 ea 12/06/21 (Lidoderm) Previous Rx's Medication Instructions Recorded lidocaine 5 % topical patch 1 patch topical Q24H #15 ea 12/06/21 (Lidoderm) Allergies Allergy/AdvReac Type Severity Reaction Status Date / Time No Known Allergies Allergy Unverified 10/11/22 10:08 General Stated Complaint: Orthopedic JALEN: 4 PFSH All Active Problems (Updated 10/11/22 @ 13:21 by JANIS Geronimo) Contusion of finger (Acute) Screening due (Acute) Acute lumbar radiculopathy (Acute) Left carpal tunnel syndrome (Acute) Medical History Alcohol abuse Concussion Epistaxis Hematuria Housing or economic circumstance Hx of traumatic brain injury Hyperlipidemia Leukoplakia of oral mucosa/tongue Low back pain Major depressive disorder Nasal congestion Obstructive sleep apnea Pain, joint, knee, left PTSD (post-traumatic stress disorder) Right shoulder pain Tobacco user Social History Smoking/Tobacco Use Status: Former Tobacco Use Smoking risk assessment performed?: Yes Alcohol Intake: former Drug use: Occasionally Substance use type: marijuana Details: 2 years sober from alcohol. Household members: spouse Housing: other Details: mobile home Number of Children: 4 Pets and animals: Yes Pets and animals: cat(s) and dog(s) What is your relationship status?: Panel score (0-1 are the most socially isolated patients): 1 What type of physical activity do you participate in: none Seatbelt use: always Do you feel safe at home: Yes Do you feel safe in your relationship?: Yes Course Vital Signs Vital signs: Vital Signs Temperature 36.7 C 10/11/22 10:06 Pulse 83 10/11/22 10:06 Respiratory Rate 18 10/11/22 10:06 Blood Pressure 112/79 10/11/22 10:06 Pulse Oximetry 97 10/11/22 10:06 Temperature 36.7 C 10/11/22 10:06 Pulse 83 10/11/22 10:06 Respiratory Rate 18 10/11/22 10:06 Respiratory Effort Normal, Non-Labored 10/11/22 10:09 Blood Pressure 112/79 10/11/22 10:06 Blood Pressure Position Sitting 10/11/22 10:06 Pulse Oximetry 97 10/11/22 10:06 Oxygen Delivery Method Room Air 10/11/22 10:06 Oxygen Flow Rate 0 10/11/22 10:06
== END 2022-10-11 13:30 | disposition home or self-care (01) ==
PROVIDERS: Emergency Provider Physician Assistant; PCP General Practice
DX: S60.032A Contusion of left middle finger without damage to nail, initial encounter (principal); X58.XXXA Exposure to other specified factors, initial encounter
CPT/HCPCS: 99283; 73140

== ENCOUNTER 2023-07-15 12:53 | Emergency (ER) | payer OTHER, SELFPAY ==
[2023-07-15 12:57] VITALS: BP 153/92; PULSE 88; RESP 16; TEMP 37.2; O2SAT 97
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
--- NOTE | 2023-07-15 14:00 | DI.CT_ITS ---
Exam(s) CT ABDOMEN PELVIS W EXAM: CT ABDOMEN PELVIS W CLINICAL HISTORY: lower abdominal pain TECHNIQUE: Imaging Protocol: Axial computed tomography images with coronal and sagittal reformatted images were created and reviewed. CONTRAST MATERIAL: Intravenous: Omnipaque 350 Contrast volume:100 mL Oral: No COMPARISON: CT CT ABDOMEN PELVIS W from 02/26/2019 FINDINGS: ABDOMEN: Lung Bases: Normal where visualized. Liver: Normal density. No measurable mass. Portal, Superior Mesenteric, and Splenic Veins: Unremarkable. Gallbladder and Biliary Tract: No radiodense calculus or dilation. Pancreas: Normal density, no abnormal calcifications or inflammatory process. Spleen: Splenomegaly. Adrenals: No masses seen. Kidneys: Normal size, contour and axis. No radiodense stones or obstructive uropathy. No masses seen. Abdominal Aorta: Abdominal portion non-dilated. Bowel: No obstruction or bowel wall thickening. No evidence of appendicitis. Peritoneal Cavity: Mildly prominent lymph nodes are seen in the mesentery with mild infiltration of t he mesenteric fat. No free air.No ascites Lymph Nodes: Mildly enlarged mesenteric lymph nodes. Bones: Within normal limits for the patient's age. Soft Tissues: Unremarkable. PELVIS: Bladder: Symmetric distention, no gross wall thickening. Reproductive Organs: Unremarkable as visualized. Lymph Nodes: Within normal limits. Bones: Within normal limits for the patient's age. IMPRESSION: 1. Mildly enlarged mesenteric lymph nodes with infiltration of the mesenteric fat. This may represen t mesenteric adenitis. Please correlate clinically. 2. Splenomegaly. RADIATION DOSE DELIVERED: Total DLP DATA REPOSITORY: All CT scans at this facility are submitted to the National Radiology Data Registry (NRDR) Dose Index Registry (DIR) with the [employer] (ACR). RADIATION OPTIMIZATION: All CT scans at this facility use at least one of these dose optimization te chniques: automated exposure control; mA and/or kV adjustment per patient size (includes targeted exa ms where dose is matched to clinical indication); or iterative reconstruction.
[2023-07-15 14:10] LABS: Bilirubin Negative (Negative); Blood Negative (Negative); Clarity Clear (Clear); Glucose Negative (Negative); Ketones Negative (Negative); Leukocyte Esterase Negative (Negative); Nitrite Negative (Negative); Urobilinogen 0.2 mg/dL (Up to 0.2)
[2023-07-15 14:28] LABS: Abs Immature Grans 0.01 10^3/uL (0.0-0.06); Absolute Basophil Count 0.06 10^3/uL (0.0-0.2); Absolute Eosinophil Count 0.26 10^3/uL (0.0-0.7); Absolute Lymphocyte Count 1.69 10^3/uL (1.2-3.4); Absolute Monocyte Count 0.45 10^3/uL (0.1-0.8); Basophils % 0.9; Eosinophils % 3.8; HCT 41.7 % (40.0-50.0); HGB 14.8 g/dL (13.5-17.5); Immature Grans % 0.1; MCH 29.7 pg (27.0-33.0); MCHC 35.5 % (32.0-36.0); MCV 84 fL (80-95); MPV 10.3 fL (8.0-11.0); Monocytes % 6.6; Neutrophils % 63.6; Platelet Count 256 10^3/uL (130-400); RBC 4.98 10^6/uL (4.36-5.78); RDW 12.3 % (11.8-14.1); WBC 6.77 10^3/uL (4.4-10.8)
[2023-07-15 14:40] LABS: ALT 46 U/L (16-63); AST 18 U/L (15-37); Albumin 3.7 g/dL (3.4-5.0); Alkaline Phosphatase 76 U/L (46-116); Anion Gap 13.8 mmol/L (3-11); BUN 12 mg/dL (7-18); Bilirubin, Total 0.5 mg/dL (0.2-1.0); CO2 27.2 mmol/L (21.0-32.0); CREATININE 1.2 mg/dL (0.70-1.30); Calcium 8.7 mg/dL (8.5-10.1); Chloride 106 mmol/L (98-107); Estimated GFR 80.38 (mL/min/1.73m2); Glucose 137 mg/dL (74-106); Magnesium 2.1 mg/dL (1.8-2.4); Potassium 3.8 mmol/L (3.5-5.1); Sodium 147 mmol/L (136-145); Total Protein 6.6 g/dL (6.4-8.2)
[2023-07-15] MEDS: Omnipaque 350 MG/ML 100 ML BTL IJ (14:47)
[2023-07-15] MEDS: Normal Saline - Diluent 50 ML VIAL IV (14:48)
[2023-07-15 15:57] VITALS: PULSE 80; RESP 16; TEMP 36.4; O2SAT 98
== END 2023-07-15 15:58 | disposition home or self-care (01) ==
PROVIDERS: Emergency Provider Physician Assistant; PCP General Practice
DX: R10.30 Lower abdominal pain, unspecified (principal); R59.0 Localized enlarged lymph nodes; Z87.891 Personal history of nicotine dependence
CPT/HCPCS: 36415; 80053; 99285; 74177; 81003; 83735; 85025; 99284; J3490

== ENCOUNTER 2023-09-23 11:14 | Emergency (ER) | payer OTHER, SELFPAY ==
[2023-09-23 11:16] VITALS: BP 169/83; PULSE 73; RESP 18; TEMP 37; O2SAT 98
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
== END 2023-09-23 11:54 | disposition home or self-care (01) ==
PROVIDERS: Emergency Provider Physician Assistant; PCP General Practice
DX: M46.1 Sacroiliitis, not elsewhere classified (principal); Z87.891 Personal history of nicotine dependence
CPT/HCPCS: 99283

== ENCOUNTER 2023-11-26 02:03 | Outpatient (CLI) | payer OTHER, SELFPAY ==
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
== END 2023-11-26 02:23 ==
PROVIDERS: Visit Provider Internal Medicine
DX: M54.50 Low back pain, unspecified (principal)
CPT/HCPCS: 72110

== ENCOUNTER 2024-02-26 09:26 | Emergency (ER) | payer OTHER, SELFPAY ==
[2024-02-26 09:34] VITALS: BP 141/86; PULSE 72; RESP 20; TEMP 36.5; O2SAT 98
--- NOTE | 2024-02-26 10:12 | DI.RAD_ITS ---
Exam(s) XR CHEST 2V PA LATERAL EXAM: XR CHEST 2V PA LATERAL CLINICAL HISTORY: cough 3 weeks, eval for pneumonia TECHNIQUE: 2D digital imaging was performed. Two views. COMPARISON: No exams were available for comparison FINDINGS: HEART: Normal size. Aorta: Not dilated. PULMONARY VASCULATURE: Normal. MEDIASTINUM: Unremarkable. LUNGS: Clear. PLEURAL SPACE: No pleural effusion or pneumothorax. BONE:Unremarkable for age. SOFT TISSUES: Unremarkable. IMPRESSION: No acute abnormality. DATA REPOSITORY: RADIATION DOSE DELIVERED:
[2024-02-26] MEDS: Budesonide/Formoterol 160/4.5 6 GM 60 PUFF INH IH (10:20)
[2024-02-26 10:28] VITALS: BP 141/86; PULSE 72; RESP 20; TEMP 36.5; O2SAT 98
[2024-02-26] MEDS: Inhaler, Assist Device 1 EACH MC (10:28)
--- NOTE | 2024-02-26 10:31 | W.ED.GENAD ---
Discharge Plan Disposition Patient Disposition: Home Condition: Good Discharge Details Clinical Impression: Reactive airway disease, Cough, persistent Primary Care Provider: [place] ED Provider: Myron Lane Home Meds and New Rx's Prescriptions: No Action escitalopram oxalate 10 mg tablet 10 mg PO DAILY Discharge Instructions Instructions: Cough, Adult ED Additional Instructions: At this time your x-ray does not show any evidence of pneumonia. I suspect there is mild irritation in your lungs secondary to your history of smoking in the past, exposure to burn pits, and then likely an initial virus that came on 2 weeks ago. With no evidence of pneumonia at this time, there is not an indication for antibiotics. However to help with the reactivity for your lungs please take the Symbicort inhaler, 2 puffs every 12 hours for the next 1 to 2 weeks. If you notice any worsening of your symptoms, or any new symptoms such as vomiting, diarrhea, fever, chills, shortness of breath, chest pain, numbness, weakness, or fainting , please return immediately to the emergency department for reevaluation. Please follow up with your primary care provider as soon as possible for reassessment and reevaluation. As always, it was a pleasure participating in your medical care today. Referrals: [place] [Primary Care Provider] - [facility] General Date/Time Provider Initiated Documentation: 02/26/24 09:31. 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 Patient states that for the last 2 to 3 weeks he has had a cough, initially was productive and persistent, however over the last week or so its transition to a dry nonproductive cough. He does admit to very mild shortness of breath. He denies any fever or chills. He denies any significant chest pain. He did notice a wheeze yesterday which did concern him. He has required to use an inhaler in the past. He denies any other complaints at this time. No other modifying factors. No hemoptysis. No trauma to the chest. No swelling in the lower extremities or history of congestive heart failure or cardiac disease. Related Data Home Medications ?Medication ?Instructions ?Recorded ?Confirmed escitalopram oxalate 10 mg tablet 10 mg PO DAILY 02/26/24 02/26/24 Allergies Allergy/AdvReac Type Severity Reaction Status Date / Time No Known Allergies Allergy Unverified 02/26/24 09:35 General Stated Complaint: RespSymp JALEN: 4 Review of Systems All systems reviewed & are unremarkable except as noted in HPI and below Exam Narrative Exam Narrative: 1.Const: Well-nourished, Well-developed, appearing stated age 2.Eyes: PERRL, no conjunctival injection, and symmetrical lids. 3.ENT: Atraumatic external nose and ears. Moist MM. Neck: Symmetric, trachea midline, No thyromegaly. 4.CVS: +S1/S2, Peripheral pulses 2+ and equal in all extremities. Brisk capillary refill in all extremities. 5.RESP: Unlabored respiratory effort. Minimal wheeze/crackle at the lateral borders. No rhonchi. 6.GI: Soft, Nontender/Nondistended, No hepatosplenomegaly. No guarding or rebound. 7.MSK: Normocephalic/Atraumatic, Extremities w/o deformity or ttp No cyanosis or clubbing, Normal movement of all extremities 8.Skin: Warm, Dry. No rashes or lesions. 9.Neuro: musculoskeletal physician II-XII grossly intact. Sensation grossly intact, no focal neurologic deficits. 10.Psych: (AAO) x3. Appropriate mood and affect Course Vital Signs Vital signs: Vital Signs Temperature 36.5 C 02/26/24 09:34 Pulse 72 02/26/24 09:34 Respiratory Rate 20 02/26/24 09:34 Blood Pressure 141/86 H 02/26/24 09:34 Pulse Oximetry 98 02/26/24 09:34 Temperature 36.5 C 02/26/24 10:28 Temperature Source Temporal Artery Scan 02/26/24 10:28 Pulse 72 02/26/24 10:28 Respiratory Rate 20 02/26/24 10:28 Respiratory Effort Normal 02/26/24 10:28 Respiratory Depth Normal 02/26/24 10:28 Blood Pressure 141/86 H 02/26/24 10:28 Blood Pressure Position Sitting 02/26/24 10:28 Pulse Oximetry 98 02/26/24 10:28 Oxygen Delivery Method Room Air 02/26/24 10:28 Oxygen Flow Rate 0 02/26/24 09:34 Pain Level 0 02/26/24 09:34 Medical Decision Making 38-year-old male with a past medical history of tobacco abuse in the distant past, exposure 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 Patient states that for the last 2 to 3 weeks he has had a cough, initially was productive and persistent, however over the last week or so its transition to a dry nonproductive cough. He does admit to very mild shortness of breath. He denies any fever or chills. He denies any significant chest pain. He did notice a wheeze yesterday which did concern him. He has required to use an inhaler in the past. He denies any other complaints at this time. No other modifying factors. No hemoptysis. No trauma to the chest. No swelling in the lower extremities or history of congestive heart failure or cardiac disease. Exam demonstrates well-appearing male, no hypoxemia. Minimal wheeze/crackle in the lateral aspects. No significant rhonchi or severe wheeze. Patient looks clinically well. Suspect suspect mild reactive airway disease versus bronchitis. Pneumonia less likely. Will get an x-ray monitor closely and reassess. He denies any exertional chest pain, or history of cardiac disease. Symptoms appear inconsistent with ACS. 10:33 AM X-ray negative for acute process. Will hold off on antibiotics for infectious etiology has at this point there is no evidence of significant infectious component. We will give Symbicort inhaler for suspected reactive airway disease and bronchial irritation. Discussed red flags for which to return. Symptoms inconsistent at this time with PE, ACS or dissection. I have extensively reviewed the treatment plan and discharge instructions with the patient. I have addressed all patient concerns at this time. The patient was made aware of what symptoms to monitor for that would warrant a return to the emergency department. Discussed the plan with the patient, they demonstrate verbal understanding and agreement with our assessment and plan at this time. The documentation in this chart was dictated using [employer] dictation software. Please excuse any dictation errors. Additionally patient is not on an CINDY or an ARB. I do not suspect this is the cause of the cough. Additionally COVID flu and RSV testing were negative. FINDINGS: HEART: Normal size. Aorta: Not dilated. PULMONARY VASCULATURE: Normal. MEDIASTINUM: Unremarkable. LUNGS: Clear. PLEURAL SPACE: No pleural effusion or pneumothorax. BONE:Unremarkable for age. SOFT TISSUES: Unremarkable. IMPRESSION: No acute abnormality. Quality:SDOH Health Related Social Needs: No Data to Display PFSH All Active Problems (Updated 02/26/24 @ 10:[address] DO) Cough, persistent (Acute) Reactive airway disease (Acute) Screening due (Acute) Acute lumbar radiculopathy (Acute) Left carpal tunnel syndrome (Acute) Medical History Housing or economic circumstance PTSD (post-traumatic stress disorder) Hx of traumatic brain injury Right shoulder pain Pain, joint, knee, left Obstructive sleep apnea Nasal congestion Major depressive disorder Low back pain Leukoplakia of oral mucosa/tongue Hyperlipidemia Hematuria Epistaxis Concussion Tobacco user Alcohol abuse Social History Smoking/Tobacco Use Status: Former Tobacco Use Smoking risk assessment performed?: Yes Alcohol Intake: former Drug use: Occasionally Substance use type: does not use Details: 2 years sober from alcohol. Household members: spouse Housing: apartment Number of Children: 4 Pets and animals: Yes Pets and animals: cat(s) and dog(s) What is your relationship status?: Panel score (0-1 are the most socially isolated patients): 1 What type of physical activity do you participate in: none Seatbelt use: always Do you feel safe at home: Yes Do you feel safe in your relationship?: Yes
[2024-02-26 10:32] LABS: COVID-19 PCR Negative (Negative); Influenza A PCR Negative (Negative); Influenza B PCR Negative (Negative); RSV PCR Negative (Negative)
[2024-02-26 10:33] LABS: Source Nasopharynx
== END 2024-02-26 10:42 | disposition home or self-care (01) ==
PROVIDERS: Emergency Provider Student in an Organized Health Care Education/Training Program
DX: R05.9 Cough, unspecified (principal); J45.909 Unspecified asthma, uncomplicated; Z91.82 Personal history of military deployment; X08.8XXA Exposure to other specified smoke, fire and flames, initial encounter; Z87.891 Personal history of nicotine dependence
CPT/HCPCS: 87637; 99284; 71046; 99283

== ENCOUNTER 2024-06-02 11:49 | Emergency (ER) | payer OTHER, SELFPAY ==
[2024-06-02 12:10] VITALS: BP 146/76; PULSE 84; RESP 12; TEMP 36.7; O2SAT 95
--- NOTE | 2024-06-02 12:55 | DI.RAD_ITS ---
Exam(s) XR WRIST RT COMPL NAVICULAR EXAM: XR WRIST RT COMPL NAVICULAR CLINICAL HISTORY: R wrist injury. TECHNIQUE: 2D digital imaging was performed of the right wrist. Four views were obtained. Scaphoid, PA, lateral and oblique views were obtained. COMPARISON: CR XR THUMB RT from 11/01/2021 FINDINGS: BONES: No acute fracture is present. No bony destructive lesion is seen. JOINTS: The carpal bones are normally aligned. SOFT TISSUE: There is soft tissue swelling of the dorsum of the wrist. No radiopaque foreign body or soft tissue gas is present. IMPRESSION: No acute fracture or dislocation. DATA REPOSITORY: RADIATION DOSE DELIVERED:
--- NOTE | 2024-06-02 13:22 | W.ED.GENAD ---
Discharge Plan Disposition Patient Disposition: Home Condition: Stable Discharge Details Clinical Impression: Sprain of right wrist Primary Care Provider: [facility] ED Provider: Myron Muller Home Meds and New Rx's Prescriptions: No Action escitalopram oxalate 10 mg tablet 10 mg PO DAILY Discharge Instructions Instructions: Wrist Sprain ED Additional Instructions: You were seen in the emergency department for the sprain of your right wrist, you have some radiating pain likely due to some swelling pressing on a peripheral nerve, this should resolve in the next 1 to 2 weeks. Please use therapeutic dosing of Tylenol (acetamenophen) & Advil (ibuprofen) in an alternating fashion as follows: Take 1000mg of Tylenol every 6 hours without missing doses- that is 4 times per day. Usp in between the Tylenol dosings, take 400-600mg of Advil also on a 6 hour schedule, that is also 4 times per day. The daily maximum dosing of Tylenol is 4000mg, and the daily maximum dosing of Advil is 2400mg. This is safe to do for weeks. Please note that some common cold medications & prescription pain medications may contain acetamenophen and you need to read OTC drug labels and factor that in to maximum daily dosings. Please rest, ice, compress and elevate the wrist often, use the wrist brace for the next 4 to 5 days and reevaluate, please follow-up with your primary care or orthopedics for further complications. Referrals: [facility] [Provider Group] [facility] [Primary Care Provider] - Discharge Data Discharge Date/Time-TO BE ENTERED AT DEPARTURE: 06/02/24 13:31 HPI General Date/Time Provider Initiated Documentation: 06/02/24 12:28. HPI Narrative: 38 year-old male presents to ED today by POV/ambulating with a chief complaint of slipped on ice at work last night, caught himself with R wrist - patient is R-hand dominant. Quality described as pain and tingling to R wrist and finger mostly in the ulnar distribution, no radiation to swelling, deformity, bruising, complete numbness, coolness, inability to move fingers/wrist. Severity is described as moderate. Palliating factors include nothing specific attempted. Provoking factors include nothing specific. Events leading up to the incident/Associated Symptoms: Patient endorses feeling a pop in the wrist at onset in the dorsal hand/forearm area. Patient not anticoagulated. Related Data Home Medications ?Medication ?Instructions ?Recorded ?Confirmed escitalopram oxalate 10 mg tablet 10 mg PO DAILY 02/26/24 06/02/24 Allergies Allergy/AdvReac Type Severity Reaction Status Date / Time No Known Allergies Allergy Unverified 06/04/24 14:19 General Stated Complaint: Orthopedic JALEN: 4 Review of Systems All systems reviewed & are unremarkable except as noted in HPI and below Exam Narrative Exam Narrative: GENERAL APPEARANCE: Well-nourished, non-toxic, awake and alert, atraumatic, no acute distress. SKIN: Warm, pink, dry, intact, without rashes/lesions/ulcerations. HEAD: Normocephalic, atraumatic, normal hair distribution for gender/age. EYES: Normal conjunctiva, no exudates on lids/lashes. ENT: Nares patent, no circumoral cyanosis, no facial swelling NECK: Supple, trachea midline, painless cervical ROM. LUNGS/CHEST: Non-labored respirations, normal A/P diameter, symmetrical expansion, no chest wall deformity HEART (CV/PV): Regular rate, no peripheral edema, no JVD. ABDOMEN: Soft, non-distended, no guarding. MSK: Normal ROM, no swelling/deformity to bilateral UEs or LEs, moving all extremities without weakness, no cyanosis, spine midline without tenderness, normal curvature, slight limited range of motion at the right wrist, right radial pulse 2+, senior vice president & general counsel strength 5/5, sensation intact, brisk capillary refill, no crepitus or deformity or swelling or ecchymosis, endorses pain along ulnar nerve distribution with negative Sonali's test date medial and lateral epicondyle, negative Phalen's, negative Tinel's test. NEURO: Mental Status AAOx4 - alert to person, place, time, events No facial droop, no forehead involvement. Motor: No focal weakness - strength 5/5 in bilateral UEs and LEs, proximal and distal, symmetric. Sensory: sensation intact to light touch globally. Gait normal: patient ambulated without ataxia into ED room. PSYCH: euthymic, cooperative, pleasant, appropriate speech Course Vital Signs Vital signs: Vital Signs Temperature 36.7 C 06/02/24 12:10 Pulse 84 06/02/24 12:10 Respiratory Rate 12 06/02/24 12:10 Blood Pressure 146/76 H 06/02/24 12:10 Pulse Oximetry 95 06/02/24 12:10 Temperature 36.7 C 06/02/24 12:10 Temperature Source Oral 06/02/24 12:10 Pulse 84 06/02/24 12:10 Respiratory Rate 12 06/02/24 12:10 Blood Pressure 146/76 H 06/02/24 12:10 Blood Pressure Position Sitting 06/02/24 12:10 Pulse Oximetry 95 06/02/24 12:10 Oxygen Delivery Method Room Air 06/02/24 12:10 Oxygen Flow Rate 0 06/02/24 12:10 Pain Level 6 06/02/24 12:10 Medical Decision Making This dictation utilizes [id number] dictation software and may contain unedited grammatical errors. 38 year-old male presents to ED today by POV/ambulating with a chief complaint of slipped on ice at work last night, caught himself with R wrist - patient is R-hand dominant. Quality described as pain and tingling to R wrist and finger mostly in the ulnar distribution, no radiation to swelling, deformity, bruising, complete numbness, coolness, inability to move fingers/wrist. Severity is described as moderate. Palliating factors include nothing specific attempted. Provoking factors include nothing specific. Events leading up to the incident/Associated Symptoms: Patient endorses feeling a pop in the wrist at onset in the dorsal hand/forearm area. Patients' medical history: Noncontributory. Family and social history: Works for [employer]. Pertinent exam findings / vital signs include slight limited range of motion at the right wrist, right radial pulse 2+, senior vice president & general counsel strength 5/5, sensation intact, brisk capillary refill, no crepitus or deformity or swelling or ecchymosis, endorses pain along ulnar nerve distribution with negative Manitou's test date medial and lateral epicondyle, negative Phalen's, negative Tinel's test at carpal ligament. Differential / pathologies of concern include sprain of right wrist, unlikely fracture, possible tendon injury. Diagnostic studies of: -XR right wrist-no acute fracture seen. Interventions of: -Provided wrist brace for sprain. ED Course/Assessment/Plan: 38-year-old male presents with a slip and fall on the ice yesterday having persistent right wrist pain heard a pop to his dorsal right wrist, having some radiating pain in the ulnar distribution, I do suspect he has a significant sprain but no likely tendon rupture his range of motion is intact with wrist extension. Counseled on RICE therapy and therapeutic dosing Tylenol and ibuprofen and following up with orthopedics for any persistent pain lasting longer than 2. Findings not consistent with fracture, neurovascular compromise, tendon rupture. Disposition of Sprain of Right Wrist. Patient verbalized understanding of the plan and return to ED criteria and engaged in shared decision making. Medical Records Medical records reviewed: Yes I reviewed the patient's medical records. Imaging Data Radiologic Study: Attestation: I personally reviewed and interpreted this imaging study as follows: Imaging: X-Ray Radiologist's impression: EXAM: XR WRIST RT COMPL NAVICULAR CLINICAL HISTORY: R wrist injury. TECHNIQUE: 2D digital imaging was performed of the right wrist. Four views were obtained. Scaphoid, PA, lateral and oblique views were obtained. COMPARISON: CR XR THUMB RT from 11/01/2021 FINDINGS: BONES: No acute fracture is present. No bony destructive lesion is seen. JOINTS: The carpal bones are normally aligned. SOFT TISSUE: There is soft tissue swelling of the dorsum of the wrist. No radiopaque foreign body or soft tissue gas is present. IMPRESSION: No acute fracture or dislocation. Quality:SDOH Health Related Social Needs: No Data to Display PFSH All Active Problems (Updated 06/04/24 @ 15:41 by JANIS Tracy) Sprain of right shoulder (Acute) Sprain of right wrist (Acute) Screening due (Acute) Acute lumbar radiculopathy (Acute) Left carpal tunnel syndrome (Acute) Medical History Housing or economic circumstance PTSD (post-traumatic stress disorder) Hx of traumatic brain injury Right shoulder pain Pain, joint, knee, left Obstructive sleep apnea Nasal congestion Major depressive disorder Low back pain Leukoplakia of oral mucosa/tongue Hyperlipidemia Hematuria Epistaxis Concussion Tobacco user Alcohol abuse Social History Smoking/Tobacco Use Status: Former Tobacco Use Smoking risk assessment performed?: Yes Alcohol Intake: former Drug use: Occasionally Substance use type: does not use Details: 2 years sober from alcohol. Household members: spouse Housing: apartment Number of Children: 4 Pets and animals: Yes Pets and animals: cat(s) and dog(s) What is your relationship status?: Panel score (0-1 are the most socially isolated patients): 1 What type of physical activity do you participate in: none Seatbelt use: always Do you feel safe at home: Yes Do you feel safe in your relationship?: Yes
== END 2024-06-02 13:31 | disposition home or self-care (01) ==
PROVIDERS: Emergency Provider Physician Assistant
DX: S63.501A Unspecified sprain of right wrist, initial encounter (principal); E78.5 Hyperlipidemia, unspecified; W00.0XXA Fall on same level due to ice and snow, initial encounter; Y93.01 Activity, walking, marching and hiking; Y92.89 Other specified places as the place of occurrence of the external cause; Z87.891 Personal history of nicotine dependence
CPT/HCPCS: 99283; 73110

== ENCOUNTER 2024-06-04 14:07 | Emergency (ER) | payer OTHER, SELFPAY ==
[2024-06-04 14:14] VITALS: BP 124/62; PULSE 72; RESP 14; TEMP 36.8; O2SAT 95
--- NOTE | 2024-06-04 14:15 | DI.RAD_ITS ---
Exam(s) XR SHOULDER RT COMPLETE 2+V EXAM: XR SHOULDER RT COMPLETE 2+V CLINICAL HISTORY: pain s/p fall. TECHNIQUE: 2D digital imaging was performed. COMPARISON: No exams were available for comparison FINDINGS: Five views No evidence of fracture or dislocation no abnormal soft tissue calcifications. Subacromial space is not diminished. There are no degenerative changes in the glenohumeral and AC joints. No AC joint di slocation and ipsilateral clavicle appears unremarkable as does the scapula. Coracoid process is int act. No adjacent rib fractures evident. IMPRESSION: No significant osseous findings in the right shoulder. DATA REPOSITORY: RADIATION DOSE DELIVERED:
--- NOTE | 2024-06-04 15:39 | ED.GENADUL_ITS ---
Discharge Plan Disposition Patient Disposition: Home Condition: Stable Discharge Details Clinical Impression: Sprain of right shoulder Primary Care Provider: [facility],[place] ED Provider: Myron Muller Home Meds and New Rx's Prescriptions: No Action escitalopram oxalate 10 mg tablet 10 mg PO DAILY Discharge Instructions Instructions: Shoulder Sprain Additional Instructions: You were seen in the emergency department for your minor right shoulder injury, you may have sprained the shoulder this may be radiating pain up the arm from your fall, there is no fracture on x-ray and you are neurovascularly intact. Please continue to rest and ice areas of pain, please use therapeutic dosing of Tylenol (acetamenophen) & Advil (ibuprofen) in an alternating fashion as follows: Take 1000mg of Tylenol every 6 hours without missing doses- that is 4 times per day. [place] in between the Tylenol dosings, take 400-600mg of Advil also on a 6 hour schedule, that is also 4 times per day. The daily maximum dosing of Tylenol is 4000mg, and the daily maximum dosing of Advil is 2400mg. This is safe to do for weeks. Please note that some common cold medications & prescription pain medications may contain acetamenophen and you need to read OTC drug labels and factor that in to maximum daily dosings. Please follow-up with orthopedics for persistent pain lasting longer than 2 weeks, please return to the emergency department for complete neurovascular compromise of right upper extremity or other emergent concern. Stand Alone Forms: Work Release Referrals: [facility],[place] [Primary Care Provider] - Discharge Data Discharge Date/Time-TO BE ENTERED AT DEPARTURE: 06/04/24 16:13 HPI General Date/Time Provider Initiated Documentation: 06/04/24 14:19 . HPI Narrative: 38 year-old male presents to ED today by POV/ambulating with a chief complaint of fall 3 days ago while at work, diagnosed with R wrist sprain, now having R shoulder pain with onset worsening over the past few days. Quality described as pain in the shoulder joint, decreased ROM, no radiation to numbness, neck pain, swelling, redness, tingling. Severity is described as moderate. Palliating factors include nothing specific attempted- is taking adequate APAP/NSAID due to prior wrist injury. Provoking factors include nothing specific. Patient not anticoagulated. Related Data Home Medications ?Medication ?Instructions ?Recorded ?Confirmed escitalopram oxalate 10 mg tablet 10 mg PO DAILY 02/26/24 06/02/24 Allergies Allergy/AdvReac Type Severity Reaction Status Date / Time No Known Allergies Allergy Unverified 06/04/24 14:19 General Stated Complaint: Orthopedic JALEN: 4 Review of Systems All systems reviewed & are unremarkable except as noted in HPI and below Exam Narrative Exam Narrative: GENERAL APPEARANCE: Well-nourished, non-toxic, awake and alert, atraumatic, no acute distress. SKIN: Warm, pink, dry, intact, without rashes/lesions/ulcerations. HEAD: Normocephalic, atraumatic, normal hair distribution for gender/age. EYES: Normal conjunctiva, no exudates on lids/lashes. ENT: Nares patent, no circumoral cyanosis, no facial swelling NECK: Supple, trachea midline, painless cervical ROM. LUNGS/CHEST: Non-labored respirations, normal A/P diameter, symmetrical expansion, no chest wall deformity HEART (CV/PV): No peripheral edema, no JVD. ABDOMEN: Soft, non-distended, no guarding. MSK: Normal ROM, no swelling/deformity to bilateral UEs or LEs, moving all extremities without weakness, no cyanosis, spine midline without tenderness, normal curvature, speeds and empty can positive strength 5/5 to these tests but causing pain, neurovascular intact distal right upper extremity NEURO: Mental Status AAOx4 - alert to person, place, time, events No facial droop, no forehead involvement. Motor: No focal weakness - strength 5/5 in bilateral UEs and LEs, proximal and distal, symmetric. Sensory: sensation intact to light touch globally. Gait normal: patient ambulated without ataxia into ED room. PSYCH: euthymic, cooperative, pleasant, appropriate speech Course Vital Signs Vital signs: Vital Signs Temperature 36.8 C 06/04/24 14:14 Pulse 72 06/04/24 14:14 Respiratory Rate 14 06/04/24 14:14 Blood Pressure 124/62 06/04/24 14:14 Pulse Oximetry 95 06/04/24 14:14 Temperature 36.8 C 06/04/24 14:14 Temperature Source Temporal Artery Scan 06/04/24 14:14 Pulse 72 06/04/24 14:14 Respiratory Rate 14 06/04/24 14:14 Blood Pressure 124/62 06/04/24 14:14 Blood Pressure Position Sitting 06/04/24 14:14 Pulse Oximetry 95 06/04/24 14:14 Oxygen Delivery Method Room Air 06/04/24 14:14 Oxygen Flow Rate 0 06/04/24 14:14 Pain Level 6 06/04/24 14:14 Comment ice, tylenol, and ibuprofen. ice made it feel worse. mild relief with otc meds. 06/04/24 14:14 Medical Decision Making This dictation utilizes [id number] dictation software and may contain unedited grammatical errors. 38 year-old male presents to ED today by POV/ambulating with a chief complaint of fall 3 days ago while at work, diagnosed with R wrist sprain, now having R shoulder pain with onset worsening over the past few days. Quality described as pain in the shoulder joint, decreased ROM, no radiation to numbness, neck pain, swelling, redness, tingling. Severity is described as moderate. Palliating factors include nothing specific attempted- is taking adequate APAP/NSAID due to prior wrist injury. Provoking factors include nothing specific. Patients' medical history: Right wrist sprain. Family and social history: Noncontributory. Pertinent exam findings / vital signs include speeds and empty can positive, tenderness to the anterior shoulder joint, no bony crepitus, N/V intact distal right upper extremity. Differential / pathologies of concern include shoulder sprain/strain, rotator cuff arthropathy, not neurovascular compromise or fracture. Diagnostic studies of: -XR R shoulder-no acute findings. Interventions of: -Recommend RICE therapy and pendulum exercises with orthopedic eval for failure to improve after 2 weeks, recommend adding topical Voltaren gel to his regimen. ED Course/Assessment/Plan: 38-year-old male presents with continued right wrist pain that has been intermi ttent having right shoulder pain after fall on the ice 3 days ago. He has no findings on his x-ray, I recommend he add Voltaren to his regimen as well as continue ice, orthopedic consult should he have no improvement in the next 2 weeks, provided work restrictions for lifting restrictions. Findings not consistent with fracture or neurovascular compromise. Disposition of sprain of right shoulder. Patient verbalized understanding of the plan and return to ED criteria and engaged in shared decision making. Medical Records Medical records reviewed: Yes I reviewed the patient's medical records. Imaging Data Radiologic Study: Attestation: I personally reviewed and interpreted this imaging study as follows: Imaging: X-Ray Radiologist's impression: EXAM: XR SHOULDER RT COMPLETE 2+V CLINICAL HISTORY: pain s/p fall. TECHNIQUE: 2D digital imaging was performed. COMPARISON: No exams were available for comparison FINDINGS: Five views No evidence of fracture or dislocation no abnormal soft tissue calcifications. Subacromial space is not diminished. There are no degenerative changes in the glenohumeral and AC joints. No AC joint dislocation and ipsilateral clavicle appears unremarkable as does the scapula. Coracoid process is intact. No adjacent rib fractures evident. IMPRESSION: No significant osseous findings in the right shoulder. Quality:SDOH Health Related Social Needs: No Data to Display PFSH All Active Problems (Updated 06/04/24 @ 15:41 by JANIS Tracy) Sprain of right shoulder (Acute) Sprain of right wrist (Acute) Screening due (Acute) Acute lumbar radiculopathy (Acute) Left carpal tunnel syndrome (Acute) Medical History Housing or economic circumstance PTSD (post-traumatic stress disorder) Hx of traumatic brain injury Right shoulder pain Pain, joint, knee, left Obstructive sleep apnea Nasal congestion Major depressive disorder Low back pain Leukoplakia of oral mucosa/tongue Hyperlipidemia Hematuria Epistaxis Concussion Tobacco user Alcohol abuse Social History Smoking/Tobacco Use Status: Former Tobacco Use Smoking risk assessment performed?: Yes Alcohol Intake: former Drug use: Occasionally Substance use type: does not use Details: 2 years sober from alcohol. Household members: spouse Housing: apartment Number of Children: 4 Pets and animals: Yes Pets and animals: cat(s) and dog(s) What is your relationship status?: Panel score (0-1 are the most socially isolated patients): 1 What type of physical activity do you participate in: none Seatbelt use: always Do you feel safe at home: Yes Do you feel safe in your relationship?: Yes
== END 2024-06-04 16:13 | disposition home or self-care (01) ==
PROVIDERS: Emergency Provider Physician Assistant
DX: S43.401A Unspecified sprain of right shoulder joint, initial encounter (principal); W19.XXXA Unspecified fall, initial encounter
CPT/HCPCS: 99283; 73030

== ENCOUNTER 2024-06-26 00:05 | Outpatient (CLI) | payer OTHER, SELFPAY ==
--- NOTE | 2024-06-26 07:45 | DI.MRI_ITS ---
Exam(s) MR UPPER JOINT RT WO EXAM: MR UPPER JOINT RT WO CLINICAL HISTORY: Pain and decreased range of motion,ROTATOR CUFF IMPINGEMENT SYNDROME,M75.41 TECHNIQUE: Multiplanar multisequence MRI of the shoulder was performed. COMPARISON: CR XR SHOULDER RT COMPLETE 2+V from 06/04/2024 FINDINGS: MARROW:There is no evidence of fracture, Hill-Sachs deformity, nor ominous osseous lesions. There is a small degenerative subarticular cysts in the posterior aspect of the greater tuberosity measuring 4 x 3 mm. GLENOHUMERAL JOINT: No joint effusion nor obvious loose intra-articular bodies. No chondral defects. No osteophytes. In no degenerative subarticular cysts in the osseous glenoid. ROTATOR CUFF MECHANISM: AC JOINT/ACROMIUM: There are minimal degenerative changes in the AC joint.. There is no evidence of os acromiale. Supraspinatus: There is some mild tendinitis signal within the supraspinatus tendon and at the muscul otendinous junction subjacent to the coracoclavicular ligament. There does not appear to be in a ent hesophyte at this level. There is a small amount of fluid above the supraspinatus at this level. Power spect that this is mild bursitis as there does not appear to be a full-thickness tear of the rotator cuff. There is no muscle atrophy of the supraspinatus. Infraspinatus: Intact. No evidence of tear nor muscle atrophy. Teres Minor: Intact. No evidence of tear nor muscle atrophy. Subscapularis/anterior cuff: Intact. No abnormal signal at the level of the multipennate insertional fibers. No significant tear nor atrophy. BICEPS TENDON: Exhibits normal position within the intertubercular groove. No evidence of tear. No tenosynovitis. LABRUM: No labral tear identified. No evidence of paralabral cyst. QUADRILATERAL SPACE: No evidence of mass in the region of the axillary nerve and dorsal circumflex hu meral vessels. Visualized triceps muscle at this level appears unremarkable. IMPRESSION: 1. There is mild tendinitis signal evident in the supraspinatus musculotendinous junction and tendon subjacent to the coracoclavicular ligament. There is also mild fluid in the subacromial bursa. I power spect that this is an element of bursitis, given that there is no full-thickness tear of the supraspi natus evident. The infraspinatus and other muscular components of the rotator cuff mechanism appear intact. 2. No evidence of labral tear nor biceps tendon tear nor displacement. No evidence of biceps tenosyn ovitis. 3. No obvious osteoarthritic degenerative changes in the glenohumeral joint and no evidence of glenoh umeral joint effusion nor loose intra-articular bodies. DATA REPOSITORY:
== END 2024-06-26 00:25 ==
LOC: DI 00:05
PROVIDERS: Visit Provider Nurse Practitioner Family
DX: M75.41 Impingement syndrome of right shoulder (principal)
CPT/HCPCS: 73221

== ENCOUNTER 2024-07-16 12:18 | Outpatient (CLI) | payer OTHER, SELFPAY ==
--- NOTE | 2024-07-16 10:00 | DI.RAD_ITS ---
Exam(s) XR CERVICAL SPINE COMP 4-5V EXAM: XR CERVICAL SPINE COMP 4-5V CLINICAL HISTORY: perisistent pain post fall M54.2 CERVICALGIA. TECHNIQUE: 2D digital imaging was performed. COMPARISON: No exams were available for comparison FINDINGS: BONES: No fracture or destructive lesion. Vertebral bodies are unremarkable. There is minimal arthros is in the cervical spine. DISKS: Intervertebral disc spaces are maintained. ALIGNMENT: Cervical spinal alignment is within normal limits. The odontoid and atlantoaxial articulat ions are normal. SOFT TISSUE: Normal. The lung apices are clear. IMPRESSION: No evidence of an acute or healing fracture or subluxation in the cervical spine. DATA REPOSITORY: RADIATION DOSE DELIVERED:
== END 2024-07-16 12:38 ==
LOC: DI 12:20
PROVIDERS: Visit Provider Nurse Practitioner Family
DX: M54.2 Cervicalgia (principal)
CPT/HCPCS: 72050

== ENCOUNTER 2024-09-28 00:21 | Outpatient (CLI) | payer OTHER, SELFPAY ==
--- NOTE | 2024-09-28 08:45 | DI.MRI_ITS ---
Exam(s) MR CERVICAL SPINE WO EXAM: MR CERVICAL SPINE WO CLINICAL HISTORY: Persistent pain, increase tingling UPPER EXTREMITIES,M54.2,R20.2 TECHNIQUE: Multiplanar multisequence MRI of the cervical spine was performed without intravenous contrast. COMPARISON: CR XR CERVICAL SPINE COMP 4-5V from 07/16/2024 FINDINGS: BONES: Vertebral body heights are maintained. Alignment is normal. Bone marrow signal intensity is within normal limits. CERVICAL CORD: Craniovertebral junction is unremarkable. The cervical cord is normal size and signal intensity. SOFT TISSUES: Unremarkable. C2-3: No disc herniation or bulge is identified. No evidence of neural foraminal narrowing. No significant central canal stenosis. C3-4: No disc herniation or bulge is identified. No evidence of neural foraminal narrowing. No significant central canal stenosis. C4-5: No disc herniation or bulge is identified. No evidence of neural foraminal narrowing. No significant central canal stenosis. C5-6: No disc herniation or bulge is identified. No evidence of neural foraminal narrowing. No significant central canal stenosis. C6-7: No disc herniation or bulge is identified. No evidence of neural foraminal narrowing. No significant central canal stenosis. C7-T1: No disc herniation or bulge is identified. No evidence of neural foraminal narrowing. No significant central canal stenosis. IMPRESSION: Unremarkable MRI of the cervical spine. DATA REPOSITORY:
== END 2024-09-28 00:41 ==
PROVIDERS: PCP Internal Medicine; Visit Provider Nurse Practitioner Family
DX: M54.2 Cervicalgia (principal); R20.2 Paresthesia of skin
CPT/HCPCS: 72141

== ENCOUNTER 2024-12-30 09:18 | Emergency (ER) | payer OTHER, SELFPAY ==
[2024-12-30 09:33] VITALS: BP 160/90; PULSE 85; RESP 16; TEMP 36.7; O2SAT 97
--- NOTE | 2024-12-30 09:45 | DI.US_ITS ---
Exam(s) US SCROTUM EXAM: US SCROTUM CLINICAL HISTORY: R scrotal pain teste pain, eval for hernia/epiditi TECHNIQUE: Ultrasound of the testes performed using grayscale, color, and Doppler imaging. COMPARISON: US US ABDOMEN LIMITED from 11/10/2024 FINDINGS: RIGHT HEMISCROTUM: The right testicle exhibits normal size and echo architecture with no evidence of intratesticular mass. Vascular flow was demonstrated within the right testicle, including arterial waveforms. The epididymis appears unremarkable. There are no epididymal head cysts. There is a small right hydrocele which measures 1.9 x 1 2 x 2.5 cm LEFT HEMISCROTUM: The left testicle exhibits normal size and echo architecture with no evidence of intratesticular mass. Vascular flow is demonstrated within the left testicle, including arterial waveforms. There are 2 small epididymal head cysts noted measuring 3 x 2 mm and 2 x 2 mm. The epididymis otherwise appears unremarkable. There is no ipsilateral hydrocele or varicocele. INGUINAL REGION (RIGHT): There is no evidence of inguinal hernia demonstrated without and with Valsalva. IMPRESSION: 1. No evidence of testicular mass nor testicular torsion. 2. Small right hydrocele 3. Two tiny benign spermatoceles in the left epididymal head. 4. No evidence of right inguinal hernia DATA REPOSITORY:
[2024-12-30] MEDS: Acetaminophen 500 MG TAB 1000 MG PO (10:18)
[2024-12-30 10:47] VITALS: BP 160/90; PULSE 85; RESP 16; TEMP 36.7; O2SAT 97
--- NOTE | 2024-12-30 11:22 | W.ED.GENAD ---
Discharge Plan Disposition Patient Disposition: Home Condition: Good Discharge Details Clinical Impression: Hydrocele, Groin strain Primary Care Provider: Sen Rich ED Provider: Myron Lane Home Meds and New Rx's Prescriptions: No Action prochlorperazine maleate [Compazine] 10 mg tablet 10 mg PO TID PRN (Reason: nausea ) Qty: 30 0RF escitalopram oxalate 10 mg tablet 10 mg PO DAILY Discharge Instructions Instructions: Hydrocele Additional Instructions: At this time you have a mild amount of inflammation around your right testicle secondary to a hydrocele. Please take Tylenol and Motrin to help with the pain. Please wear supportive underwear, and ice the area as needed or use a cool pack. Please avoid any aggressive exercise or activity for the next 1 to 2 weeks as this could exacerbate your groin strain and your hydrocele pain. If you notice any worsening of your symptoms, or any new symptoms such as vomiting, diarrhea, fever, chills, shortness of breath, chest pain, numbness, weakness, or fainting , please return immediately to the emergency department for reevaluation. Please follow up with your primary care provider as soon as possible for reassessment and reevaluation. As always, it was a pleasure participating in your medical care today. Referrals: Sen Rich [Primary Care Provider, Medicine] [facility] General Date/Time Provider Initiated Documentation: 12/30/24 09:28. HPI Narrative: This is a pleasant 39-year-old male with a past medical history of a suspected previous groin strain, who presents today for evaluation of right groin pain/scrotal pain. Patient states that for the last few weeks he has been dealing with mild achiness in the right groin and the scrotum. It is occasional. He has been going through a work hardening program, and has been seeing physical therapy regularly to strengthen and stretch the groin muscle areas. He noticed that over the last few physical therapy attempts things have been notably more sore in that region. On Saturday which was 5 days ago it was quite sore in the right groin while working out. Then over the weekend it continued to get worse. Saturday and Saturday it became consistent and persistent. Pain worsened, then today he came in for further assessment. He does admit to mild dysuria with urination but denies any blood. He states that he has not been sexually active for quite some time, and denies any history of STDs. He denies seeing any blood in his ejaculate recently. He states that the pain is achy in nature as well as occasionally sharp. It goes from the right groin down into his right scrotum and around his right testicle. Pain is made worse with movement and activity, and improved with rest. No other complaints at this time. No other modifying factors. Related Data Home Medications ?Medication ?Instructions ?Recorded ?Confirmed escitalopram oxalate 10 mg tablet 10 mg PO DAILY 02/26/24 12/30/24 prochlorperazine maleate 10 mg 10 mg PO TID PRN nausea #30 tabs 09/29/24 12/30/24 tablet (Compazine) Previous Rx's ?Medication ?Instructions ?Recorded prochlorperazine maleate 10 mg 10 mg PO TID PRN nausea #30 tabs 09/29/24 tablet (Compazine) Allergies Allergy/AdvReac Type Severity Reaction Status Date / Time No Known Allergies Allergy Unverified 12/30/24 09:36 General Stated Complaint: Abd Prob JALEN: 3 Exam Narrative Exam Narrative: 1.Const: Well-nourished, Well-developed, appearing stated age 2.Eyes: PERRL, no conjunctival injection, and symmetrical lids. 3.ENT: Atraumatic external nose and ears. Moist MM. Neck: Symmetric, trachea midline, No thyromegaly. 4.CVS: +S1/S2, Peripheral pulses 2+ and equal in all extremities. Brisk capillary refill in all extremities. 5.RESP: Unlabored respiratory effort. Clear to auscultation bilaterally. No wheezes rales or rhonchi 6.GI: Soft, Nontender/Nondistended, No hepatosplenomegaly. No guarding or rebound. Genital exam demonstrates no evidence of hernia in the right groin. No significant lymphadenopathy in the inguinal canal. Right testicle demonstrates mild right testicular tenderness on palpation, mild to moderate epididymal tenderness. Normal testicular lie. Normal cremasteric reflex bilaterally. No redness or edema to suggest cellulitis. No penile shaft tenderness. 7.MSK: Normocephalic/Atraumatic, Extremities w/o deformity or ttp No cyanosis or clubbing, Normal movement of all extremities 8.Skin: Warm, Dry. No rashes or lesions. 9.Neuro: supervisor final II-XII grossly intact. Sensation grossly intact, no focal neurologic deficits. 10.Psych: (AAO) x3. Appropriate mood and affect Course Vital Signs Vital signs: Vital Signs Temperature 36.7 C 12/30/24 09:33 Pulse 85 12/30/24 09:33 Respiratory Rate 16 12/30/24 09:33 Blood Pressure 160/90 H 12/30/24 09:33 Pulse Oximetry 97 12/30/24 09:33 Temperature 36.7 C 12/30/24 10:47 Temperature Source Oral 12/30/24 10:47 Pulse 85 12/30/24 10:47 Respiratory Rate 16 12/30/24 10:47 Blood Pressure 160/90 H 12/30/24 10:47 Blood Pressure Position Sitting 12/30/24 10:47 Pulse Oximetry 97 12/30/24 10:47 Oxygen Delivery Method Room Air 12/30/24 10:47 Oxygen Flow Rate 0 12/30/24 10:47 Pain Level 7 12/30/24 10:47 Medical Decision Making This is a pleasant 39-year-old male with a past medical history of a suspected previous groin strain, who presents today for evaluation of right groin pain/scrotal pain. Patient states that for the last few weeks he has been dealing with mild achiness in the right groin and the scrotum. It is occasional. He has been going through a work hardening program, and has been seeing physical therapy regularly to strengthen and stretch the groin muscle areas. He noticed that over the last few physical therapy attempts things have been notably more sore in that region. On Saturday which was 5 days ago it was quite sore in the right groin while working out. Then over the weekend it continued to get worse. Saturday and Saturday it became consistent and persistent. Pain worsened, then today he came in for further assessment. He does admit to mild dysuria with urination but denies any blood. He states that he has not been sexually active for quite some time, and denies any history of STDs. He denies seeing any blood in his ejaculate recently. He states that the pain is achy in nature as well as occasionally sharp. It goes from the right groin down into his right scrotum and around his right testicle. Pain is made worse with movement and activity, and improved with rest. No other complaints at this time. No other modifying factors. Genital exam demonstrates no evidence of hernia in the right groin. No significant lymphadenopathy in the inguinal canal. Right testicle demonstrates mild right testicular tenderness on palpation, mild to moderate epididymal tenderness. Normal testicular lie. Normal cremasteric reflex bilaterally. No redness or edema to suggest cellulitis. No penile shaft tenderness. No urethral discharge. No clinical evidence to suggest large hernia. Concern for groin strain, epididymitis, less likely orchitis. No evidence to suggest testicular torsion at this time. Will give NSAID therapy, get an ultrasound, get urinalysis to evaluate for UTI. Will monitor closely and reassess. 12:30 PM Ultrasound shows evidence of a right hydrocele, tiny spermatocele on the left, but no testicular mass, torsion, or evidence of hernia. Patient's urinalysis is negative for infection. Symptoms are likely secondary to a combination of a groin strain and his hydrocele being aggravated. Patient feels much better after NSAID therapy. Patient shows no signs of other life-threatening scrotal or testicular component. Patient stable for discharge. Will recommend supportive underwear, NSAID therapy at home, ice, and rest. Discussed red flags for which to return. I have extensively reviewed the treatment plan and discharge instructions with the patient. I have addressed all patient concerns at this time. The patient was made aware of what symptoms to monitor for that would warrant a return to the emergency department. Discussed the plan with the patient, they demonstrate verbal understanding and agreement with our assessment and plan at this time. The documentation in this chart was dictated using [employer] dictation software. Please excuse any dictation errors. INDINGS: RIGHT HEMISCROTUM: The right testicle exhibits normal size and echo architecture with no evidence of intratesticular mass. Vascular flow was demonstrated within the right testicle, including arterial waveforms. The epididymis appears unremarkable. There are no epididymal head cysts. There is a small right hydrocele which measures 1.9 x 1 2 x 2.5 cm LEFT HEMISCROTUM: The left testicle exhibits normal size and echo architecture with no evidence of intratesticular mass. Vascular flow is demonstrated within the left testicle, including arterial waveforms. There are 2 small epididymal head cysts noted measuring 3 x 2 mm and 2 x 2 mm. The epididymis otherwise appears unremarkable. There is no ipsilateral hydrocele or varicocele. INGUINAL REGION (RIGHT): There is no evidence of inguinal hernia demonstrated without and with Valsalva. IMPRESSION: 1. No evidence of testicular mass nor testicular torsion. 2. Small right hydrocele 3. Two tiny benign spermatoceles in the left epididymal head. 4. No evidence of right inguinal hernia PFSH All Active Problems (Updated 12/30/24 @ 11:[address] DO) Groin strain (Acute) Hydrocele (Acute) Nausea (Acute) Tingling of right upper extremity (Acute) Tingling of left upper extremity (Acute) Neck pain (Acute) Rotator cuff impingement syndrome of right shoulder (Acute) Screening due (Acute) Acute lumbar radiculopathy (Acute) Left carpal tunnel syndrome (Acute) Medical History Housing or economic circumstance PTSD (post-traumatic stress disorder) Hx of traumatic brain injury Right shoulder pain Pain, joint, knee, left Obstructive sleep apnea Nasal congestion Major depressive disorder Low back pain Leukoplakia of oral mucosa/tongue Hyperlipidemia Hematuria Epistaxis Concussion Tobacco user Alcohol abuse Social History Smoking/Tobacco Use Status: Former Tobacco Use Smoking risk assessment performed?: Yes Alcohol Intake: former Drug use: Occasionally Substance use type: marijuana Details: 2 years sober from alcohol. Pt smokes marijuana occasionally. Household members: spouse Housing: apartment Number of Children: 4 Pets and animals: Yes Pets and animals: cat(s) and dog(s) What is your relationship status?: Panel score (0-1 are the most socially isolated patients): 1 What type of physical activity do you participate in: none Seatbelt use: always Do you feel safe at home: Yes Do you feel safe in your relationship?: Yes
[2024-12-30 11:25] LABS: Glucose Negative (Negative)
[2024-12-30 12:00] VITALS: BP 132/82; PULSE 60; RESP 16; O2SAT 100
== END 2024-12-30 12:01 | disposition home or self-care (01) ==
PROVIDERS: Emergency Provider Student in an Organized Health Care Education/Training Program; PCP Internal Medicine
DX: N43.3 Hydrocele, unspecified (principal); S39.011A Strain of muscle, fascia and tendon of abdomen, initial encounter; X58.XXXA Exposure to other specified factors, initial encounter
CPT/HCPCS: 99284; 99283; 76870; 81003